=== PATIENT | female | born 1950 | race Hispanic/Latino ===

== ENCOUNTER → 2018-07-27 | Outpatient (CLI) | payer MEDICARE ==
[~2018-07-27] MED LIST: GLIPIZIDE5 MG PO; HYDROCHLOROTHIA25 MG PO; LEXAPRO10 MG PO; LORAZEPAM INJ 2 MG/ML VIAL ONE; LOSARTAN POTAS100 MG PO; METOPROLOL SUCC50 MG PO; NORCO 7.5-3251 EACH PO; REGADENOSON 0.4 MG/5 ML SYR IV ONE
== END ==
LOC: NM 08:32
PROVIDERS: ATTEND Internal Medicine Cardiovascular Disease
DX: R06.02 Shortness of breath (principal)
CPT/HCPCS: 36415; 78452; 82948; 93005; 93017; A9502; J2060; J2785

== ENCOUNTER 2019-05-31 11:39 | Inpatient (IN) | payer MEDICARE, OTHER ==
[~2019-05-31] VITALS: Ht 152.4 cm; Wt 80.8 kg
[~2019-05-31 11:39] MED LIST changes: -LORAZEPAM INJ 2 MG/ML VIAL ONE; -REGADENOSON 0.4 MG/5 ML SYR IV ONE
--- OUTSIDE RECORDS SUMMARY | 2019-05-31 11:42 | XMS REPORT ---
Author Author 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 Allergies, Adverse Reactions, Alerts This patient has no known allergies or adverse reactions. Medications This patient has no known medications. Encounters Start Date/Time End Date/Time Encounter Type Admission Type Attending Clinicians Care Facility Care Department Encounter ID 2019-04-20 18:17:00 2019-04-20 15:31:00 Inpatient E [facility] [id number] Results Test Description Test Time Test Comments Text Results Atomic Results Result Comments SCR MAMM BILATERAL PETER CAD DIGITAL 2018-06-29 12:51:15 - SCR MAMM BILATERAL PETER CAD DIGITALBILATERAL DIGITAL SCREENING MAMMOGRAM 3D/2D WITH CAD: 06/29/2018CLINICAL: Asymptomatic. Digital breast tomosynthesis was performed in addition to routine CC and MLO views. Current mammographic images were evaluated by either a [employer] M-Vu or a [employer] CAD (computer aided detection system). Comparison is made to exams dated 05/24/2016 mammogram - [facility], 09/05/2014 mammogram, and 07/04/2013 mammogram - [facility]. The tissue of both breasts is predominantly fatty. No suspicious mass, architectural distortion, malignant type calcification, or lymph node abnormality detected. Breast architecture is stable compared to prior exams.IMPRESSION: NEGATIVEThere is no mammographic evidence of malignancy. Resume annual screening mammography in one year. Ander landeros/penrad:06/29/2018 12:51:15 copy to: [facility], ph: [phone], fax: [phone] Technologist: Moon BURT, [facility] sent: BIRADS 1-2 Normal Mammogram BI-RADS: 1 Negative
[2019-05-31] MEDS ORDERED: ASPIRIN 81 MG CHEW TAB PO ONE (11:45)
--- NOTE | 2019-05-31 12:31 | Diagnostic Imaging Report ---
Chest, portable AP view History: Shortness breath Comparison: No comparisons available for review IMPRESSION: The heart is within normal limits of size. The mediastinal and hilar contours are unremarkable. No focal consolidation, sizable pleural effusion, or pneumothorax. No acute osseous abnormalities. Signed by: Abisai Webb MD on 05/31/2019 12:27 PM
[2019-05-31 13:17] LABS: CLARITY,URINE SL CLOUDY (CLEAR); COLOR,URINE YELLOW (YELLOW)
[2019-05-31 13:18] LABS: BILIRUBIN,URINE NEGATIVE (NEGATIVE); KETONES,URINE NEGATIVE (NEGATIVE); LEUKOCYTE ESTERASE ,URINE NEGATIVE (NEGATIVE); NITRITE,URINE NEGATIVE (NEGATIVE); PROTEIN,URINE DIPSTICK NEGATIVE (NEGATIVE); URINE UROBILINOGEN 0.2 mg/dL (0.2 - 1)
[2019-05-31 13:28] LABS: BACTERIA,URINE FEW /HPF; EPITHELIAL CELLS,URINE MODERATE /LPF; RBC,URINE 0-5 /HPF (0-5)
[2019-05-31 13:33] LABS: INR 1.35; PARTIAL THROMBOPLASTIN TIME 40.1 seconds (23.8-35.5); PROTHROMBIN TIME 17.6 seconds (11.9-14.5)
[2019-05-31 13:41] LABS: ALBUMIN 4.1 g/dL (3.5-5.0); ANION GAP 17.7 mmol/L (8-16); CALCIUM 10.6 mg/dL (8.4-10.2); CREATININE, SERUM 1.29 mg/dL (0.57-1.11); MAGNESIUM 1.9 MG/DL (1.3-2.1); POTASSIUM 3.7 mmol/L (3.5-5.1)
[2019-05-31 14:08] LABS: BASOPHILS # (AUTO) 0.1 (0.0-0.1); BASOPHILS % 0.6 % (0.0-1.0); EOSINOPHILS % 0.2 % (0.0-6.0); HEMOGLOBIN 14.3 g/dL (12.0-16.0); LYMPHOCYTES # (AUTO) 1.5 (1.0-3.2); LYMPHOCYTES % 16.2 % (18.0-39.1); MEAN CORPUSCULAR HEMOGLOBIN 29.4 pg (28-32); MEAN CORPUSCULAR HGB CONC 32.5 g/dL (31-35); MEAN CORPUSCULAR VOLUME 90.5 fL (81-99); MONOCYTES # (AUTO) 0.8 (0.2-0.8); MONOCYTES % 8.8 % (4.4-11.3); NEUTROPHILS # (AUTO) 6.7 (2.1-6.9); PLATELET COUNT 295 x10e3/uL (140-360); RED BLOOD COUNT 4.86 x10e6/uL (3.6-5.1); RED CELL DISTRIBUTION WIDTH 14.4 % (11.7-14.4)
[2019-05-31] MEDS ORDERED: SODIUM CHLORIDE 0.9% 1000ML 1,000 ML IV STA (14:15)
[2019-05-31] MEDS ORDERED: ONDANSETRON HCL INJ 2MG/ML 2ML 2 MG/ML VIAL IV PRN (15:15)
--- NOTE | 2019-05-31 15:31 | Diagnostic Imaging Report ---
CT of the chest, with contrast (PE protocol). History: Shortness of breath Comparison: None available. Technique: Multidetector CT scanning of the chest was performed from the level of the thoracic inlet to the upper abdomen after IV contrast injection. Thin collimation scanning through the pulmonary arteries was performed during the early phase. Coronal MIP reformations were obtained. DOSE REDUCTION: The examination was performed according to departmental dose-optimization program which includes automated exposure control, adjustment of the mA and/or kV according to patient size and/or use of iterative reconstruction technique. Discussion: The visualized portions of the thyroid within normal limits. There is no axillary, mediastinal, or hilar lymphadenopathy. The heart is within normal limits of size. A small pericardial effusion is present. There are scattered coronary artery calcifications are noted. The thoracic aorta is of normal course and caliber and demonstrates moderate atherosclerotic calcifications. The main pulmonary artery is normal in caliber. The pulmonary artery branches are well opacified with contrast. There is no evidence of pulmonary embolism. The trachea and central airways are clear. There are small bilateral pleural effusions, right greater than left. Atelectasis is present in the bilateral lower lobes and lingula. No focal consolidation. No pneumothorax. The esophagus is of normal course and caliber. Limited evaluation of the upper abdomen demonstrates no focal hepatic lesions in the visualized portions of the liver. The spleen is within normal limits. IMPRESSION: 1. No evidence of pulmonary embolism. 2. Small pericardial effusion. 3. Small bilateral pleural effusions, right greater than left. Signed by: Abisai Webb MD on 05/31/2019 3:28 PM
[2019-05-31] MEDS: SODIUM CHLORIDE 0.9% 1000ML 1,000 ML IV SCH (15:53)
[2019-05-31] MEDS ORDERED: SODIUM CHLORIDE 0.9% 50ML 50 ML ONE (17:54)
[2019-05-31] MEDS ORDERED: IOPAMIDOL 370 MG/ML 200 ML INFUS..BTL INJ ONE (17:55)
--- NOTE | 2019-05-31 18:05 | NUR ---
PT RECEIVED FROM ER. MORAIMA. FAMILY AT BEDSIDE. EDUCATED PT ABOUT FALL PRECAUTIONS. CALL LIGHT WITH IN EASY REACH. INSTRUCTED PT TO USE CALL LIGHT FOR ALL THE NEEDS. PT VERBALIZED UNDERSTANDING. BED IS LOW AND LOCKED. SIDE RAILS X2.PT DENIES NEEDS AT THIS TIME.
[2019-05-31 18:30] VITALS: BP 117/59
--- NOTE | 2019-05-31 19:00 | NUR ---
BEDSIDE SHIFT REPORT GIVEN TO THE PRESIDENT [facility]UCATIONAL [facility] RN. PT DENIED FURTHER NEEDS.
--- NOTE | 2019-05-31 19:10 | NUR ---
Bedside shift completed with morning nurse. Pt alert and oriented to name. Lying in bed, HOB 30 degrees. Denies pain at this time. Family at bedside. Call light within reach. Will continue to monitor.
[2019-05-31 20:00] VITALS: BP 117/59
[2019-05-31 20:40] VITALS: BP 117/59
--- NOTE | 2019-05-31 20:40 | NUR ---
Completed RN nursing assessment. Pt alert to name, hospital, and diagnosis: SOB. O2 @2L, o2 sat 98%. Skin dry and intact. Denies pain at this time. Continent B/B, x1 assist. Lung sounds diminished. Meds rec completed. Last BM 05/31. Urine clear, yellow, and without odor. Oriented Pt/Family to room, bed low and locked, call light within reach. Will continue to monitor.
[2019-05-31 21:00] VITALS: BP 117/59
[2019-05-31] MEDS ORDERED: FAMOTIDINE 20 MG/2 ML VIAL IV SCH (21:00)
[2019-05-31] MEDS ORDERED: ELIQUIS5 MG (21:56)
[2019-05-31] MEDS ORDERED: TRIAMTERENE-HCTZ1 EA PO ×2 (21:56)
[2019-05-31] MEDS ORDERED: AMLODIPINE BESYL5 MG PO (21:56)
[2019-05-31] MEDS ORDERED: AMIODARONE HCL200 MG (21:56)
[2019-05-31] MEDS ORDERED: ASPIRIN81 MG (21:56)
[2019-05-31] MEDS ORDERED: ZOLPIDEM TARTRAT5 MG PO (21:56)
[2019-05-31] MEDS ORDERED: FARXIGA10 MG (21:56)
[2019-05-31] MEDS ORDERED: METOPROLOL TART25 MG PO (21:56)
[2019-05-31] MEDS ORDERED: LOVASTATIN40 MG (21:56)
[2019-05-31] MEDS ORDERED: GLIMEPIRIDE2 MG PO (21:56)
[2019-06-01] VITALS (10 sets, daily range): BP systolic 126–150; BP diastolic 53–80
[2019-06-01 00:14] LABS: CREATINE KINASE MB 10.7 ng/mL (0-5.0)
[2019-06-01] MEDS: SODIUM CHLORIDE 0.9% 1000ML 1,000 ML IV SCH ×2 (02:18→07:32)
[2019-06-01 05:48] LABS: BASOPHILS # (AUTO) 0.1 (0.0-0.1); BASOPHILS % 0.9 % (0.0-1.0); EOSINOPHILS # (AUTO) 0.1 (0.0-0.4); EOSINOPHILS % 0.7 % (0.0-6.0); HEMATOCRIT 42.2 % (34.2-44.1); HEMOGLOBIN 13.5 g/dL (12.0-16.0); LYMPHOCYTES # (AUTO) 1.7 (1.0-3.2); LYMPHOCYTES % 24.3 % (18.0-39.1); MEAN CORPUSCULAR HEMOGLOBIN 29.2 pg (28-32); MEAN CORPUSCULAR VOLUME 91.1 fL (81-99); MONOCYTES # (AUTO) 0.9 (0.2-0.8); MONOCYTES % 12.6 % (4.4-11.3); NEUTROPHILS # (AUTO) 4.3 (2.1-6.9); NEUTROPHILS % 61.2 % (38.7-80.0); PLATELET COUNT 296 x10e3/uL (140-360); RED BLOOD COUNT 4.63 x10e6/uL (3.6-5.1); RED CELL DISTRIBUTION WIDTH 14.5 % (11.7-14.4)
[2019-06-01 06:08] LABS: ALBUMIN 3.5 g/dL (3.5-5.0); ALBUMIN/GLOBULIN RATIO 0.9 (0.8-2.0); ANION GAP 11.5 mmol/L (8-16); CALCIUM 9.7 mg/dL (8.4-10.2); CHOL/HDL RATIO 3.4 (3.0-3.6); CREATININE, SERUM 0.97 mg/dL (0.57-1.11); POTASSIUM 3.5 mmol/L (3.5-5.1)
--- NOTE | 2019-06-01 07:00 | NUR ---
Rounds completed with morning nurse. No acute distress noted. Family at bedside.
[2019-06-01 08:06] LABS: CREATINE KINASE MB 8.9 ng/mL (0-5.0)
[2019-06-01] MEDS ORDERED: ASPIRIN 81 MG ENTERIC COATED PO SCH (09:00)
[2019-06-01] MEDS ORDERED: FUROSEMIDE INJ 10 MG/ML 4 ML VIAL IV NR (09:30)
[2019-06-01] MEDS ORDERED: DEXTROSE 50% SYRINGE 50 ML IV PRN (09:30)
--- NOTE | 2019-06-01 09:44 | NUR ---
Spoke with Dr. Oneil and he changed attending to Dr. Lynn due to insurance is [facility]. CM notified Dr. Lynn. CM notified Ashley on MS2 that Dr. Lynn has been notified
--- NOTE | 2019-06-01 11:10 | NUR ---
H&P cc: generalized weakness and pain for several days HPI: 68yoF, PCP , developed generalized weakness and muscle pain for several days; Found to have acute rhabdomyolysis. PMH: DM2, HTN PSHx: back ALlergies; see emr Fh/SH; ; no cigs meds; see MAR ROS: no f/c/s/N/V/D/KANG/cp/sob/skin rash/back pain/confusion/focal limb weakness v/s; revd PE tired appearing anicteric ns1s2 mod bs soft nt nd no e/t skin dry flat affect a&ox3; kennedy labs/meds revd A/P: Acute rhabdomyolysis- ivf DEIRDRE- ivf DM2- hba1c/lipids Obesity- hab1c/lipids BMI 34.8 Enterococcus UTI- iv abx B/L pleural effusion- monitor prop: scd dispo: f/u labs; Beto Lynn MD, PhD.
[2019-06-01] MEDS ORDERED: ONDANSETRON HCL INJ 2MG/ML 2ML 2 MG/ML VIAL IV PRN (11:15)
[2019-06-01] MEDS: AMIODARONE HCL 200 MG TAB PO SCH (11:18)
[2019-06-01] MEDS: INSULIN LISPRO 100 UNIT/1 ML 3ML VIAL SQ SCH ×3 (11:47→21:00)
--- NOTE | 2019-06-01 12:40 | NUR ---
KAREN CALL FROM TELE MONITOR STATING PATIENTS MONITOR IS READING V TACH. WENT TO SEE PT, SHE IS SITTING IN CHAIR WITHOUT ANY DISTRESS, NO COMPLAINTS. STATES SHE HAS A LITTLE CHEST PRESSURE, NOT REALLY HURTING. CALLED FOR STAT ECG, SAME DONE AND SHOWS AFIB WITH RVR. DR. MOREL CALLED AND REPORT GIVEN TO HER, SHE IS AVAILABLE AND WILL SEE PATIENT AND ECG PATIENT HAS NO COMPLAINTS POST ECG, WILL CONTINUE TO MONITOR
[2019-06-01] MEDS: METOPROLOL TARTRATE 25 MG TAB PO SCH (16:47)
[2019-06-01] MEDS: APIXABAN 5 MG TABLET PO SCH (16:47)
[2019-06-01] MEDS: FUROSEMIDE INJ 10 MG/ML 4 ML VIAL IV SCH (16:49)
[2019-06-01] MEDS: ACETAMINOPHEN 325 MG TAB PO PRN (16:49)
--- NOTE | 2019-06-01 18:32 | Consultation ---
DATE OF CONSULTATION: 06/01/2019 Cardiology Consultation REQUESTING PHYSICIAN: Satnley Lynn MD. REASON FOR CONSULTATION: Shortness of breath. HISTORY OF PRESENT ILLNESS: This is a 68-year-old woman with history of hypertension, hyperlipidemia, diabetes mellitus, as well as paroxysmal atrial fibrillation, who was admitted with complaints of shortness of breath and weakness. The patient was recently admitted to [facility] with complaints of palpitations and chest pain. She was found to have atrial fibrillation and started on appropriate medical therapy. She states that after her discharge from the hospital, she has been significantly fatigued with worsening of her symptoms over the last month. She was seen in the office by Dr. Marroquin yesterday with complaints of weakness and shortness of breath. On ambulation, she was noted to become hypoxic to 85% and she was therefore sent to the ER for further evaluation. The patient states that she has been having chest pain and shortness of breath for the last month. Describes the pain as a pressure lasting approximately 20 minutes at a time, 10/10 in severity, occurring multiple times a day. CT in the ER did not reveal evidence of pulmonary embolism, but she was seen to have a small pericardial effusion and small bilateral pleural effusions, right greater than left. In addition, she was noted to have CK elevation to 1446 and acute kidney injury. The patient was therefore admitted for further care. Cardiology is consulted for evaluation of her cardiac condition. REVIEW OF SYSTEMS: Negative except as per HPI. PAST MEDICAL HISTORY: Hypertension, hyperlipidemia, and diabetes mellitus. PAST SURGICAL HISTORY: Spine surgery. ALLERGIES: NO KNOWN DRUG ALLERGIES. MEDICATIONS: Please see medication list. SOCIAL HISTORY: Denies tobacco, alcohol, or illicit drugs. FAMILY HISTORY: Noncontributory to current illness. PHYSICAL EXAMINATION: VITAL SIGNS: Temperature 97.5 degrees, pulse 86, respiratory rate 18, blood pressure 133/64, and oxygen saturation 100% on room air. GENERAL: Awake, alert, well-nourished, elderly woman, no acute distress. HEENT: Normocephalic, atraumatic. Pupils equal. No sclerae icterus. NECK: Supple. No thyromegaly. No cervical lymphadenopathy. No carotid bruits. LUNGS: Decreased breath sounds at the bases. No wheezes or crackles. CARDIOVASCULAR: Normal rate. Regular rhythm. No murmur. Normal S1, S2. ABDOMEN: Soft, nontender. EXTREMITIES: No edema. NEUROLOGIC: Nonfocal exam. LABORATORY DATA: Sodium 140, potassium 3.5, chloride 108, CO2 of 24, BUN 20, and creatinine 0.97. BNP 153. LABORATORY DATA: WBC 6.96, hemoglobin 13.5, hematocrit 42.2, and platelets 296. EKG, normal sinus rhythm, possible left atrial enlargement, ST and T-wave abnormalities. IMPRESSION: 1. Rhabdomyolysis. 2. Acute hypoxic respiratory failure. 3. Elevated BNP. 4. Paroxysmal atrial fibrillation. 5. Hypertension. 6. Hyperlipidemia. 7. Diabetes mellitus. RECOMMENDATIONS: Statin has been discontinued. Continue amiodarone and Eliquis for her paroxysmal atrial fibrillation. Continue IV fluids. Her renal function has improved. We will start her on IV Lasix to keep euvolemic. Continue home cardiac medications otherwise. Monitor the patient closely on telemetry while admitted. Thank you for this consult. We will continue to follow. Lucinda Moore MD ABS/MODL /[id number]
[2019-06-01] MEDS: ZOLPIDEM TARTRATE 5 MG TAB PO SCH (21:45)
[2019-06-02] VITALS (13 sets, daily range): BP systolic 101–136; BP diastolic 57–80
[2019-06-02 06:11] LABS: BASOPHILS # (AUTO) 0.1 (0.0-0.1); BASOPHILS % 0.8 % (0.0-1.0); EOSINOPHILS % 0.2 % (0.0-6.0); HEMOGLOBIN 14.8 g/dL (12.0-16.0); LYMPHOCYTES # (AUTO) 1.6 (1.0-3.2); LYMPHOCYTES % 18.1 % (18.0-39.1); MEAN CORPUSCULAR HEMOGLOBIN 29.1 pg (28-32); MEAN CORPUSCULAR HGB CONC 32.2 g/dL (31-35); MEAN CORPUSCULAR VOLUME 90.6 fL (81-99); MONOCYTES # (AUTO) 0.9 (0.2-0.8); MONOCYTES % 10.4 % (4.4-11.3); NEUTROPHILS # (AUTO) 6.2 (2.1-6.9); NEUTROPHILS % 70.2 % (38.7-80.0); PLATELET COUNT 305 x10e3/uL (140-360); RED BLOOD COUNT 5.08 x10e6/uL (3.6-5.1); RED CELL DISTRIBUTION WIDTH 14.4 % (11.7-14.4)
--- NOTE | 2019-06-02 07:01 | NUR ---
IM-progress note O/N see below ROS: no f/c/s/N/V/D/KANG/cp/sob/skin rash/back pain/confusion/focal limb weakness v/s; revd PE tired appearing anicteric ns1s2 mod bs soft nt nd no e/t skin dry flat affect a&ox3; kennedy labs/meds revd A/P: Acute rhabdomyolysis- ivf DEIRDRE- ivf DM2- hba1c/lipids Obesity- hab1c/lipids BMI 34.8 Enterococcus UTI- iv abx B/L pleural effusion- monitor prop: scd dispo: f/u labs; 06/02/19 check renal fn and CPK at 4pm. Beto Lynn MD, PhD.
--- NOTE | 2019-06-02 07:06 | NUR ---
BSSR GIVEN TO ONCOMING SHIFT GEOVANY ALVAREZ, PATIENT STABLE, VSS, AFEBRILE, IN BED, CALL LIGHT WITHIN REACH, VERBAZBARAK CONTINUE PLAN OF CARE, BED IN LOWEST POSITION, LABS PENDING THIS AM
[2019-06-02 07:12] LABS: ANION GAP 18.4 mmol/L (8-16); CREATININE, SERUM 1.2 mg/dL (0.57-1.11); POTASSIUM 3.4 mmol/L (3.5-5.1)
[2019-06-02 07:14] LABS: PHOSPHORUS 4.4 MG/DL (2.3-4.7)
[2019-06-02 07:34] LABS: THYROID STIMULATING HORMONE 2.741 uIU/mL (0.350-4.940)
[2019-06-02 07:47] LABS: FOLATE 33.6 ng/mL (7.0-15.4)
[2019-06-02] MEDS: FUROSEMIDE INJ 10 MG/ML 4 ML VIAL IV SCH ×2 (08:12→17:04)
[2019-06-02] MEDS: APIXABAN 5 MG TABLET PO SCH ×2 (08:13→17:04)
[2019-06-02] MEDS: AMLODIPINE BESYLATE 5 MG TAB PO SCH (08:13)
[2019-06-02] MEDS: AMIODARONE HCL 200 MG TAB PO SCH (08:13)
[2019-06-02] MEDS: METOPROLOL TARTRATE 25 MG TAB PO SCH ×2 (08:13→17:05)
[2019-06-02] MEDS: INSULIN LISPRO 100 UNIT/1 ML 3ML VIAL SQ SCH ×4 (08:21→23:42)
[2019-06-02 17:00] LABS: ANION GAP 17.8 mmol/L (8-16); CREATININE, SERUM 1.42 mg/dL (0.57-1.11); POTASSIUM 3.8 mmol/L (3.5-5.1)
[2019-06-02] MEDS: SODIUM CHLORIDE 0.45% 1,000 ML IV SCH (18:12)
--- NOTE | 2019-06-02 19:16 | NUR ---
BEDSIDE SHIFT REPORT RECEIVED FROM GEOVANY ALVAREZ, SKIN WARM DRY, PATIENT SITTING IN CHAIR WITH DAUGHTER AT BEDSIDE, NO DISTRESS NOTED, REMAIN ON TELEMETRY, REPORT SR TODAY, PATIENT NPO AFTER MIDNIGHT FOR STRESS TEST IN THE AM, PATIENT AND DAUGHTER MADE AWARE QUESTIONS ANSWERED R/T PENDING PROCEDURE IN THE AM, DENIES CP OR SOB AT THIS TIME, CALL LIGHT WITHIN REACH
--- NOTE | 2019-06-02 19:22 | Progress Note ---
DATE: 06/02/2019 Cardiology Progress Note SUBJECTIVE: The patient denies shortness of breath, however, she does endorse chest pain. OBJECTIVE: VITAL SIGNS: Temperature 97.8 degrees, pulse 68, respiratory rate 20, blood pressure 101/71, and oxygen saturation 100% on room air. GENERAL: Awake, alert, elderly woman, in no acute distress. LUNGS: Decreased breath sounds at the bases. No wheezes or crackles. CARDIOVASCULAR: Normal rate. Regular rhythm. No murmur. Normal S1 and S2. ABDOMEN: Soft and nontender. EXTREMITIES: No edema. CARDIAC MEDICATIONS: Metoprolol tartrate 25 mg p.o. b.i.d., apixaban 5 mg p.o. b.i.d., amlodipine 5 mg p.o. daily, and amiodarone 200 mg p.o. daily. LABORATORY DATA: WBC 8.8, hemoglobin 14.8, hematocrit 46, and platelets 305. Sodium 138, potassium 3.8, chloride 100, CO2 24, BUN 36, and creatinine 1.42. TELEMETRY: Personally reviewed and interpreted, revealing normal sinus rhythm. IMPRESSION: 1. Rhabdomyolysis. 2. Acute hypoxic respiratory failure. 3. Elevated BNP. 4. Paroxysmal atrial fibrillation. 5. Hypertension. 6. Hyperlipidemia. 7. Diabetes mellitus. RECOMMENDATIONS: Statin has been discontinued. Continue amiodarone and Eliquis for her paroxysmal atrial fibrillation. Continue IV fluids. Creatinine has worsened. Stop Lasix for now. Monitor volume status closely. Given her continued chest pain, would recommend we proceed with nuclear stress test tomorrow. Continue current cardiac medications. Monitor the patient closely on telemetry. Thank you for this consult. We will continue to follow. Lucinda Moore MD ABS/MODL /[id number]
[2019-06-02] MEDS: ZOLPIDEM TARTRATE 5 MG TAB PO SCH (22:28)
[2019-06-03] VITALS (11 sets, daily range): BP systolic 109–130; BP diastolic 56–60
[2019-06-03 06:05] LABS: ALBUMIN 3.6 g/dL (3.5-5.0); ANION GAP 14.1 mmol/L (8-16); CALCIUM 9.2 mg/dL (8.4-10.2); CREATININE, SERUM 1.08 mg/dL (0.57-1.11); POTASSIUM 3.1 mmol/L (3.5-5.1)
[2019-06-03] MEDS: INSULIN LISPRO 100 UNIT/1 ML 3ML VIAL SQ SCH ×4 (07:30→21:00)
--- NOTE | 2019-06-03 08:02 | NUR ---
Patient states "I don't want to sign stress test consent until I speak to my pay clerk. Paged . infection preventionist. states "I will let know so he can talk to her."
[2019-06-03] MEDS ORDERED: REGADENOSON 0.4 MG/5 ML SYR IV ONE (08:43)
[2019-06-03] MEDS: METOPROLOL TARTRATE 25 MG TAB PO SCH ×2 (09:00→16:27)
[2019-06-03] MEDS: APIXABAN 5 MG TABLET PO SCH ×2 (09:00→16:27)
[2019-06-03] MEDS ORDERED: ONDANSETRON HCL 4 MG ORAL DISINTEGRATING TAB PO PRN (10:45)
--- NOTE | 2019-06-03 12:00 | NUR ---
IM-progress note O/N see below ROS: no f/c/s/N/V/D/KANG/cp/sob/skin rash/back pain/confusion/focal limb weakness v/s; revd PE tired appearing anicteric ns1s2 mod bs soft nt nd no e/t skin dry flat affect a&ox3; kennedy labs/meds revd A/P: Acute rhabdomyolysis- ivf DEIRDRE- ivf DM2- hba1c/lipids Obesity- hab1c/lipids BMI 34.8 Enterococcus UTI- iv abx B/L pleural effusion- monitor prop: scd dispo: f/u labs; 06/02/19 check renal fn and CPK at 4pm. 06/03 E.faecalis UTI- sen to Pen; HypoK- replace and recheck; DEIRDRE resolving after lasix stopped; cont IV fluid; f/u stress test; monitor fluid balance; Redu ce fluid to KVO. Beto Lynn MD, PhD.
--- NOTE | 2019-06-03 12:45 | NUR ---
at [facility] speaking to patient about stress test. stress test cancelled.
[2019-06-03] MEDS: AMIODARONE HCL 200 MG TAB PO SCH (13:10)
[2019-06-03] MEDS: AMLODIPINE BESYLATE 5 MG TAB PO SCH (13:10)
[2019-06-03] MEDS: SODIUM CHLORIDE 0.45% 1,000 ML IV SCH (13:25)
--- NOTE | 2019-06-03 14:00 | NUR ---
D/C Summary Principal Dx: Acute rhabdomyolysis- ivf DEIRDRE- ivf Enterococcus UTI- iv abx B/L pleural effusion- monitor Secondary Dx: DM2- hba1c/lipids Obesity- hab1c/lipids BMI 34.8 Enterococcus UTI- iv abx B/L pleural effusion- monitor prop: scd dispo: f/u labs; 06/02/19 check renal fn and CPK at 4pm. 06/03 E.faecalis UTI- sen to Pen; HypoK- replace and recheck; DEIRDRE resolving after lasix stopped; cont IV fluid; f/u stress test; monitor fluid balance; Reduce fluid to KVO. 06/04 check labs; refuses stress test; improving well; renal fn much better; CPK also improving; d/c home. d/c home f/u pcp 1 week and cardiology 1 week stable d/c>35mins Beto Lynn MD, PhD.
[2019-06-03] MEDS: ACETAMINOPHEN 325 MG TAB PO PRN (14:44)
[2019-06-03] MEDS ORDERED: POTASSIUM CHLORIDE 20 MEQ TAB CR PO NR (17:20)
[2019-06-03] MEDS: CEFTRIAXONE SOD 1 GM/NS 50 ML 50 ML IV SCH (17:48)
--- NOTE | 2019-06-03 18:57 | Progress Note ---
DATE: Cardiology Progress Note SUBJECTIVE: Still reports mild shortness of breath and weakness. No chest pain. OBJECTIVE: VITAL SIGNS: Temperature is 96.6, heart rate is 81, respirations are 22, blood pressure is 126/60, and oxygen saturation 97% on 2 L nasal cannula. GENERAL: Well-appearing, in no apparent distress. CARDIOVASCULAR: Regular rate and rhythm. LUNGS: Clear to auscultation. ABDOMEN: Soft, nontender, and nondistended. EXTREMITIES: No clubbing, cyanosis, or edema. LABORATORY DATA: Reviewed. CARDIOVASCULAR MEDICATIONS: Reviewed. Creatine kinase is down to 568. IMPRESSION: 1. Rhabdomyolysis. 2. Acute hypoxic respiratory failure. 3. Elevated BNP. 4. Paroxysmal atrial fibrillation. 5. Hypertension. 6. Hyperlipidemia. 7. Diabetes mellitus. RECOMMENDATIONS: Her statin was discontinued. Creatine kinase levels are improving with intravenous fluids. Lasix has been discontinued. Continue to monitor her daily laboratory values. Stress test was recommended, however, the patient currently is declining at this point in time. We will continue current cardiovascular medications otherwise. Dionisio Marroquin DO BM/MODL /[id number]
--- NOTE | 2019-06-03 19:28 | NUR ---
Report given to oncoming nurse of patient's status. Sitting on recliner. AAOX4 to time, person, place, situation. Respiration even and unlabored. Call light at bedside, daughter at bedside.
--- NOTE | 2019-06-03 19:35 | NUR ---
Patient received sitting up in bed. AAO x 4. Patient had no complaints of pain. Respirations even and non-labored. Fall precautions implemented. Patient instructed to call for assistance when needed. Call light within reach.
[2019-06-03] MEDS: ZOLPIDEM TARTRATE 5 MG TAB PO SCH (20:47)
[2019-06-04] VITALS (7 sets, daily range): BP systolic 120–143; BP diastolic 58–71
--- NOTE | 2019-06-04 07:00 | NUR ---
Walking rounds done. Patient resting comfortably. BSSR given to oncoming nurse.
[2019-06-04 07:52] LABS: BASOPHILS # (AUTO) 0.1 (0.0-0.1); BASOPHILS % 0.7 % (0.0-1.0); EOSINOPHILS # (AUTO) 0.1 (0.0-0.4); EOSINOPHILS % 1.5 % (0.0-6.0); HEMATOCRIT 42.2 % (34.2-44.1); HEMOGLOBIN 13.7 g/dL (12.0-16.0); LYMPHOCYTES # (AUTO) 1.8 (1.0-3.2); LYMPHOCYTES % 26.2 % (18.0-39.1); MEAN CORPUSCULAR HEMOGLOBIN 29.4 pg (28-32); MEAN CORPUSCULAR HGB CONC 32.5 g/dL (31-35); MEAN CORPUSCULAR VOLUME 90.6 fL (81-99); MONOCYTES # (AUTO) 0.7 (0.2-0.8); MONOCYTES % 9.9 % (4.4-11.3); NEUTROPHILS # (AUTO) 4.2 (2.1-6.9); NEUTROPHILS % 61.6 % (38.7-80.0); PLATELET COUNT 276 x10e3/uL (140-360); RED BLOOD COUNT 4.66 x10e6/uL (3.6-5.1); RED CELL DISTRIBUTION WIDTH 14.5 % (11.7-14.4)
[2019-06-04] MEDS: APIXABAN 5 MG TABLET PO SCH ×2 (08:15→17:10)
[2019-06-04] MEDS: AMIODARONE HCL 200 MG TAB PO SCH (08:15)
[2019-06-04] MEDS: INSULIN LISPRO 100 UNIT/1 ML 3ML VIAL SQ SCH ×3 (08:15→17:11)
[2019-06-04] MEDS: METOPROLOL TARTRATE 25 MG TAB PO SCH ×2 (08:15→17:10)
[2019-06-04] MEDS: AMLODIPINE BESYLATE 5 MG TAB PO SCH (08:15)
[2019-06-04 08:27] LABS: ANION GAP 13.2 mmol/L (8-16); BLOOD UREA NITROGEN 18 mg/dL (7-26); BUN/CREATININE RATIO 22 (6-25); CALCIUM 9.5 mg/dL (8.4-10.2); CARBON DIOXIDE 28 mmol/L (22-29); CHLORIDE 103 mmol/L (98-107); CREATININE, SERUM 0.83 mg/dL (0.57-1.11); EST GLOMERULAR FILTRATION RATE > 60 ML/MIN (60-); GLUCOSE 135 mg/dL (74-118); POTASSIUM 4.2 mmol/L (3.5-5.1); SODIUM 140 mmol/L (136-145)
[2019-06-04] MEDS: SODIUM CHLORIDE 0.45% 1,000 ML IV SCH (16:21)
[2019-06-04] MEDS: CEFTRIAXONE SOD 1 GM/NS 50 ML 50 ML IV SCH (17:11)
--- NOTE | 2019-06-04 19:26 | NUR ---
Patient received sitting up in bed. Son at bedside. AAO x 3. No acute distress noted. Fall precautions implemented. Patient instructed to call for assistance when needed. Call light within reach.
[2019-06-04] MEDS ORDERED: KEFLEX500 MG PO (19:37)
--- NOTE | 2019-06-04 20:55 | NUR ---
Patient given discharge instructions . Patient verbalized understanding. Telemetry removed. IV removed from left arm with tip intact . Patient in stable condition. Vital signs WNL. Patient transported to private [facility] via wheelchair.
== END 2019-06-04 20:45 | disposition home or self-care (01) | DRG 557 ==
LOC: ER 11:39 → ERHOLD 15:15 → MED/SURG2 18:00
PROVIDERS: ADMIT Internal Medicine; ATTEND Internal Medicine
DX: M62.82 Rhabdomyolysis (principal); I50.31 Acute diastolic (congestive) heart failure; J96.01 Acute respiratory failure with hypoxia; N17.9 Acute kidney failure, unspecified; N39.0 Urinary tract infection, site not specified; J90 Pleural effusion, not elsewhere classified; I11.0 Hypertensive heart disease with heart failure; I48.0 Paroxysmal atrial fibrillation; E11.9 Type 2 diabetes mellitus without complications; B95.2 Enterococcus as the cause of diseases classified elsewhere; E66.9 Obesity, unspecified; Z68.34 Body mass index [BMI] 34.0-34.9, adult
CPT/HCPCS: 36415; 71045; 71260; 80048; 80053; 80061; 81001; 82550; 82552; 82553; 82607; 82746; 82948; 83036; 83735; 83880; 84100; 84443; 84484; 85025; 85379; 85610; 85730; 87040; 87086; 87186; 93005; 93306; 96361; 96372; 97139; 99284; J0696; J1940; J7030; Q9967

== ENCOUNTER 2019-06-20 14:37 | Emergency (ER) | payer MEDICARE, OTHER ==
[~2019-06-20] VITALS: Ht 152.4 cm; Wt 80.7 kg
[~2019-06-20 14:37] MED LIST changes: +AMIODARONE HCL200 MG; +AMLODIPINE BESYL5 MG PO; +ASPIRIN81 MG; +ELIQUIS5 MG; +FARXIGA10 MG; +GLIMEPIRIDE2 MG PO; +KEFLEX500 MG PO; +LOVASTATIN40 MG; +METOPROLOL TART25 MG PO; +TRIAMTERENE-HCTZ1 EA PO; +ZOLPIDEM TARTRAT5 MG PO
[2019-06-20 16:26] LABS: CLARITY,URINE SL CLOUDY (CLEAR); COLOR,URINE YELLOW (YELLOW); LEUKOCYTE ESTERASE ,URINE TRACE (NEGATIVE); NITRITE,URINE NEGATIVE (NEGATIVE); PROTEIN,URINE DIPSTICK NEGATIVE (NEGATIVE)
[2019-06-20 16:27] LABS: BILIRUBIN,URINE NEGATIVE (NEGATIVE); KETONES,URINE NEGATIVE (NEGATIVE); URINE UROBILINOGEN 0.2 mg/dL (0.2 - 1)
[2019-06-20 16:37] LABS: BACTERIA,URINE FEW /HPF; EPITHELIAL CELLS,URINE MANY /LPF; RBC,URINE 0-5 /HPF (0-5); YEAST,URINE FEW
== END 2019-06-20 16:48 | disposition home or self-care (01) ==
LOC: ER 14:37
DX: R30.0 Dysuria (principal); R10.2 Pelvic and perineal pain; N30.90 Cystitis, unspecified without hematuria; I10 Essential (primary) hypertension; E11.9 Type 2 diabetes mellitus without complications
CPT/HCPCS: 36415; 81001; 82948; 87086; 99282

== ENCOUNTER → 2020-01-02 | Day surgery (SDC) | payer MEDICARE, OTHER ==
[2019-12-30 16:12] LABS: BASOPHILS # (AUTO) 0.1 (0.0-0.1); BASOPHILS % 0.7 % (0.0-1.0); EOSINOPHILS % 0.5 % (0.0-6.0); HEMATOCRIT 42.1 % (34.2-44.1); HEMOGLOBIN 13.3 g/dL (12.0-16.0); LYMPHOCYTES % 26.4 % (18.0-39.1); MEAN CORPUSCULAR HEMOGLOBIN 30.6 pg (28-32); MEAN CORPUSCULAR HGB CONC 31.6 g/dL (31-35); MONOCYTES # (AUTO) 0.8 (0.2-0.8); MONOCYTES % 10.3 % (4.4-11.3); NEUTROPHILS # (AUTO) 4.7 (2.1-6.9); NEUTROPHILS % 61.7 % (38.7-80.0); PLATELET COUNT 129 x10e3/uL (140-360); RED BLOOD COUNT 4.34 x10e6/uL (3.6-5.1); RED CELL DISTRIBUTION WIDTH 15.1 % (11.7-14.4)
[~2020-01-02] MED LIST changes: -AMIODARONE HCL200 MG; +AMIODARONE HCL200 MG PO; +BALANCED SALT SOLN (OPTH) 15 ML BTL IO ONE; +BUPIVACAINE HC 0.75% PF 10ML VIAL INJ ONE; +EPINEPHRINE HCL 1:1000 1ML 1 MG/ML AMP ONE; +FENTANYL CITRATE/PF 100MCG/2 ML INJ ONE; +LEVOTHYROXINE50 MCG PO; +LIDOCAINE 2% /EPINEPHRINE 20 ML SDV INJ ONE; +LIDOCAINE HCL-PF 4% 40 MG/1 ML 5ML AMP ONE; +MIDAZOLAM HCL 2 MG/2 ML VIAL ONE; +PILOCARPINE HCL(OPTH) 15 ML LIQD ONE; +PIOGLITAZONE30 MG PO; +POVIDONE IODINE 5% (OPTH) 30 ML BTL ONE; +TOBRAMYCIN/DEXAMETHASONE(OPTH) 3.5 GM TUBE ONE
[2020-01-02 09:17] LABS: CALCIUM 8.9 mg/dL (8.4-10.2); CREATININE, SERUM 0.98 mg/dL (0.57-1.11)
[2020-01-02 10:50] VITALS: BP 136/62
== END | disposition home or self-care (01) ==
LOC: OR 06:41
PROVIDERS: ATTEND Ophthalmology
DX: H11.041 Peripheral pterygium, stationary, right eye (principal); E11.9 Type 2 diabetes mellitus without complications; I10 Essential (primary) hypertension; E03.9 Hypothyroidism, unspecified; Z88.8 Allergy status to other drugs, medicaments and biological substances; Z01.810 Encounter for preprocedural cardiovascular examination; Z01.812 Encounter for preprocedural laboratory examination; Z11.59 Encounter for screening for other viral diseases; Z79.02 Long term (current) use of antithrombotics/antiplatelets; Z79.84 Long term (current) use of oral hypoglycemic drugs
CPT/HCPCS: 36415 ×2; 65426; 80048; 82948; 85025; 88304; 93005; J2001; J2250; J3010; U0002; J0171

== ENCOUNTER → 2020-03-13 | Outpatient (CLI) | payer OTHER ==
[~2020-03-13] MED LIST changes: -BALANCED SALT SOLN (OPTH) 15 ML BTL IO ONE; -BUPIVACAINE HC 0.75% PF 10ML VIAL INJ ONE; -EPINEPHRINE HCL 1:1000 1ML 1 MG/ML AMP ONE; -FENTANYL CITRATE/PF 100MCG/2 ML INJ ONE; -LIDOCAINE 2% /EPINEPHRINE 20 ML SDV INJ ONE; -LIDOCAINE HCL-PF 4% 40 MG/1 ML 5ML AMP ONE; -MIDAZOLAM HCL 2 MG/2 ML VIAL ONE; -PILOCARPINE HCL(OPTH) 15 ML LIQD ONE; -POVIDONE IODINE 5% (OPTH) 30 ML BTL ONE; +REGADENOSON 0.4 MG/5 ML SYR IV ONE; -TOBRAMYCIN/DEXAMETHASONE(OPTH) 3.5 GM TUBE ONE
--- NOTE | 2020-03-17 16:07 | Myoview Stress Test ---
DATE OF STUDY: 03/13/2020 08:54:00 Stress Test - Treadmill ONLY DICTATION NUMBER: [id number]. PROCEDURE JOSELITO: Rest/stress single isotope SPECT imaging with pharmacologic stress and gated SPECT imaging. INDICATION: Chest pain. PROCEDURE IN DETAIL: Pharmacologic stress testing was performed with regadenoson per protocol. The heart rate was 70 beats per minute at rest and increased to 81 beats per minute during the regadenoson infusion. The resting blood pressure is 105/43 mmHg and increased to 120/46 mmHg, which is a normal response. The resting electrocardiogram demonstrated normal sinus rhythm. There were no ST-segment changes suggestive of myocardial ischemia. Myocardial perfusion imaging was performed at rest following the injection of 11 mCi of tetrofosmin. At peak pharmacologic effect, the patient was injected with 32.9 mCi of tetrofosmin. Gated post-stress tomographic imaging was performed. FINDINGS: The overall quality of the study is fair. The left ventricular cavity is noted to be normal size on the rest and stress studies. SPECT images demonstrate homogeneous tracer distribution throughout the myocardium. Gated SPECT imaging reveals normal myocardial thickening and wall motion. The left ventricular ejection fraction was calculated to be greater than 70%. CONCLUSION: Myocardial perfusion imaging is normal. Overall, left ventricular systolic function was normal without regional wall motion abnormalities. Lucinda Moore MD ABS/MODL /[id number]
== END ==
LOC: NM 08:39
PROVIDERS: ATTEND Internal Medicine Cardiovascular Disease
DX: R07.9 Chest pain, unspecified (principal)
CPT/HCPCS: 78452; 93017; A9502; J2785

== ENCOUNTER → 2020-05-01 | Emergency (ER) | payer MEDICARE, OTHER ==
[~2020-05-01] VITALS: Ht 152.4 cm; Wt 80.7 kg
[~2020-05-01] MED LIST changes: -REGADENOSON 0.4 MG/5 ML SYR IV ONE
[2020-05-01 16:49] LABS: BASOPHILS # (AUTO) 0.1 (0.0-0.1); BASOPHILS % 0.6 % (0.0-1.0); EOSINOPHILS % 0.2 % (0.0-6.0); HEMATOCRIT 35.7 % (34.2-44.1); HEMOGLOBIN 11.8 g/dL (12.0-16.0); LYMPHOCYTES # (AUTO) 1.9 (1.0-3.2); LYMPHOCYTES % 23.1 % (18.0-39.1); MEAN CORPUSCULAR HEMOGLOBIN 29.6 pg (28-32); MEAN CORPUSCULAR HGB CONC 33.1 g/dL (31-35); MEAN CORPUSCULAR VOLUME 89.7 fL (81-99); MONOCYTES # (AUTO) 0.9 (0.2-0.8); MONOCYTES % 10.8 % (4.4-11.3); NEUTROPHILS # (AUTO) 5.3 (2.1-6.9); NEUTROPHILS % 64.9 % (38.7-80.0); PLATELET COUNT 200 x10e3/uL (140-360); RED BLOOD COUNT 3.98 x10e6/uL (3.6-5.1); RED CELL DISTRIBUTION WIDTH 14.6 % (11.7-14.4)
[2020-05-01 17:06] LABS: ALBUMIN 4.1 g/dL (3.5-5.0); ALBUMIN/GLOBULIN RATIO 1.2 (0.8-2.0); ANION GAP 19.2 mmol/L (8-16); CALCIUM 9.6 mg/dL (8.4-10.2); CREATININE, SERUM 1.06 mg/dL (0.57-1.11); POTASSIUM 4.2 mmol/L (3.5-5.1)
[2020-05-01 17:27] LABS: CLARITY,URINE CLEAR (CLEAR); COLOR,URINE YELLOW (YELLOW); LEUKOCYTE ESTERASE ,URINE NEGATIVE (NEGATIVE); NITRITE,URINE NEGATIVE (NEGATIVE)
[2020-05-01 17:28] LABS: KETONES,URINE NEGATIVE (NEGATIVE); PROTEIN,URINE DIPSTICK NEGATIVE (NEGATIVE); URINE UROBILINOGEN 0.2 mg/dL (0.2 - 1)
[2020-05-01 17:39] LABS: BACTERIA,URINE MODERATE /HPF; EPITHELIAL CELLS,URINE MANY /LPF
[2020-05-01 19:51] VITALS: BP 118/79
== END | disposition home or self-care (01) ==
LOC: ER 17:30
DX: R10.9 Unspecified abdominal pain (principal); I10 Essential (primary) hypertension; E11.9 Type 2 diabetes mellitus without complications; I48.91 Unspecified atrial fibrillation; Z88.8 Allergy status to other drugs, medicaments and biological substances; Z79.02 Long term (current) use of antithrombotics/antiplatelets; Z79.84 Long term (current) use of oral hypoglycemic drugs
CPT/HCPCS: 36415; 74176; 80053; 81001; 82550; 82553; 83880; 84484; 85025; 99284

== ENCOUNTER 2020-06-07 11:59 | Observation (INO) | payer MEDICARE, OTHER ==
[~2020-06-07] VITALS: Ht 152.4 cm; Wt 91.6 kg
[2020-06-07 12:34] LABS: BASOPHILS # (AUTO) 0.1 (0.0-0.1); BASOPHILS % 1.2 % (0.0-1.0); EOSINOPHILS % 0.5 % (0.0-6.0); HEMATOCRIT 35.8 % (34.2-44.1); HEMOGLOBIN 11.5 g/dL (12.0-16.0); LYMPHOCYTES # (AUTO) 1.4 (1.0-3.2); LYMPHOCYTES % 22.5 % (18.0-39.1); MEAN CORPUSCULAR HEMOGLOBIN 30.6 pg (28-32); MEAN CORPUSCULAR HGB CONC 32.1 g/dL (31-35); MEAN CORPUSCULAR VOLUME 95.2 fL (81-99); MONOCYTES # (AUTO) 0.7 (0.2-0.8); MONOCYTES % 11.3 % (4.4-11.3); NEUTROPHILS # (AUTO) 3.9 (2.1-6.9); NEUTROPHILS % 64.2 % (38.7-80.0); PLATELET COUNT 161 x10e3/uL (140-360); RED BLOOD COUNT 3.76 x10e6/uL (3.6-5.1); RED CELL DISTRIBUTION WIDTH 16.6 % (11.7-14.4)
[2020-06-07 12:55] LABS: INR 1.46; PROTHROMBIN TIME 18.8 seconds (11.9-14.5)
[2020-06-07 12:57] LABS: PARTIAL THROMBOPLASTIN TIME 33.2 seconds (23.8-35.5)
[2020-06-07] MEDS ORDERED: NITROGLYCERIN 0.4 MG SUBL SL PRN (13:30)
[2020-06-07] MEDS ORDERED: MORPHINE SULFATE INJ 2 MG/ML SYR IV PRN (13:30)
[2020-06-07] MEDS ORDERED: ONDANSETRON HCL INJ 2MG/ML 2ML 2 MG/ML VIAL IV PRN (13:30)
[2020-06-07 13:40] LABS: CLARITY,URINE CLEAR (CLEAR); COLOR,URINE YELLOW (YELLOW); LEUKOCYTE ESTERASE ,URINE NEGATIVE (NEGATIVE); NITRITE,URINE NEGATIVE (NEGATIVE); PROTEIN,URINE DIPSTICK NEGATIVE (NEGATIVE)
[2020-06-07 13:41] LABS: KETONES,URINE NEGATIVE (NEGATIVE); URINE UROBILINOGEN 0.2 mg/dL (0.2 - 1)
[2020-06-07 13:54] LABS: BACTERIA,URINE FEW /HPF; EPITHELIAL CELLS,URINE RARE /LPF; WBC,URINE (MAN) 0-5 /HPF (0-5)
[2020-06-07 15:03] LABS: ALANINE AMINOTRANSFERASE 22 IU/L (0-55); ALBUMIN 4.3 g/dL (3.5-5.0); ALBUMIN/GLOBULIN RATIO 1.2 (0.8-2.0); ALKALINE PHOSPHATASE 85 IU/L (40-150); ANION GAP 17.4 mmol/L (8-16); BLOOD UREA NITROGEN 22 mg/dL (7-26); BUN/CREATININE RATIO 19 (6-25); CALCIUM 9.9 mg/dL (8.4-10.2); CARBON DIOXIDE 26 mmol/L (22-29); CHLORIDE 104 mmol/L (98-107); CREATINE KINASE 75 IU/L (29-168); CREATININE, SERUM 1.13 mg/dL (0.57-1.11); EST GLOMERULAR FILTRATION RATE 48 ML/MIN (60-); GLUCOSE 163 mg/dL (74-118); MAGNESIUM 2.2 MG/DL (1.3-2.1); POTASSIUM 4.4 mmol/L (3.5-5.1); SODIUM 143 mmol/L (136-145)
[2020-06-07 16:53] VITALS: BP 176/84
[2020-06-07 17:32] VITALS: BP 176/84
[2020-06-07 20:44] VITALS: BP 167/73
[2020-06-08 00:26] VITALS: BP 166/88
[2020-06-08 05:00] VITALS: BP 170/83
[2020-06-08 05:09] LABS: BASOPHILS % 0.7 % (0.0-1.0); EOSINOPHILS # (AUTO) 0.1 (0.0-0.4); EOSINOPHILS % 1.3 % (0.0-6.0); HEMATOCRIT 38.2 % (34.2-44.1); HEMOGLOBIN 12.1 g/dL (12.0-16.0); LYMPHOCYTES # (AUTO) 1.7 (1.0-3.2); MEAN CORPUSCULAR HEMOGLOBIN 30.7 pg (28-32); MEAN CORPUSCULAR HGB CONC 31.7 g/dL (31-35); MONOCYTES # (AUTO) 0.8 (0.2-0.8); MONOCYTES % 14.9 % (4.4-11.3); NEUTROPHILS # (AUTO) 2.9 (2.1-6.9); NEUTROPHILS % 51.7 % (38.7-80.0); PLATELET COUNT 179 x10e3/uL (140-360); RED BLOOD COUNT 3.94 x10e6/uL (3.6-5.1); RED CELL DISTRIBUTION WIDTH 16.4 % (11.7-14.4)
[2020-06-08 05:28] LABS: ALBUMIN 3.8 g/dL (3.5-5.0); ALBUMIN/GLOBULIN RATIO 1.2 (0.8-2.0); ANION GAP 15.7 mmol/L (8-16); CALCIUM 9.2 mg/dL (8.4-10.2); CHOL/HDL RATIO 4.1 (3.0-3.6); CREATININE, SERUM 1.07 mg/dL (0.57-1.11); POTASSIUM 3.7 mmol/L (3.5-5.1)
[2020-06-08 05:54] LABS: CREATINE KINASE MB 1.2 ng/mL (0-5.0)
[2020-06-08] MEDS ORDERED: DEXTROSE 50% SYRINGE 50 ML IV PRN (06:15)
[2020-06-08] MEDS ORDERED: DOCUSATE SODIUM 100 MG CAP PO PRN (06:15)
[2020-06-08] MEDS ORDERED: ACETAMINOPHEN 325 MG TAB PO PRN (06:15)
[2020-06-08] MEDS ORDERED: LEVOTHYROXINE SODIUM 50 MCG TAB PO SCH (06:30)
[2020-06-08] MEDS: INSULIN REGULAR, HUMAN 100 UNIT/1 ML 3ML VIAL SQ SCH ×3 (07:30→16:30)
[2020-06-08 07:35] LABS: CHOL/HDL RATIO 4.1 (3.0-3.6)
[2020-06-08 08:00] VITALS: BP 156/69
[2020-06-08 08:52] VITALS: BP 170/83
[2020-06-08] MEDS: APIXABAN 5 MG TABLET PO SCH ×2 (09:00→17:00)
[2020-06-08] MEDS: METOPROLOL TARTRATE 25 MG TAB PO SCH ×2 (09:00→17:00)
[2020-06-08] MEDS: AMIODARONE HCL 200 MG TAB PO SCH ×2 (09:00→17:00)
[2020-06-08] MEDS ORDERED: LOSARTAN POTASSIUM 100 MG TAB PO SCH (11:00)
[2020-06-08 12:00] VITALS: BP 141/79
[2020-06-08 14:41] LABS: CREATINE KINASE 67 IU/L (29-168)
[2020-06-08 16:00] VITALS: BP 126/61
[2020-06-08] MEDS ORDERED: LOSARTAN POTAS100 MG PO (19:12)
[2020-06-08] MEDS ORDERED: ZOLPIDEM TARTRATE 5 MG TAB PO PRN (21:00)
== END 2020-06-08 20:00 | disposition home or self-care (01) ==
LOC: ER 12:22 → ERHOLD 13:31 → MED/SURG2 15:58
PROVIDERS: ADMIT Internal Medicine; ATTEND Internal Medicine
DX: R07.89 Other chest pain (principal); I10 Essential (primary) hypertension; E11.9 Type 2 diabetes mellitus without complications; I48.20 Chronic atrial fibrillation, unspecified; E78.5 Hyperlipidemia, unspecified; Z88.8 Allergy status to other drugs, medicaments and biological substances; E66.01 Morbid (severe) obesity due to excess calories; Z68.39 Body mass index [BMI] 39.0-39.9, adult; N17.9 Acute kidney failure, unspecified; E03.9 Hypothyroidism, unspecified; F41.9 Anxiety disorder, unspecified; J90 Pleural effusion, not elsewhere classified; Z20.822 Contact with and (suspected) exposure to COVID-19; Z79.84 Long term (current) use of oral hypoglycemic drugs
CPT/HCPCS: 36415 ×2; 71045; 80053 ×2; 80061; 81001; 82550 ×2; 82553 ×2; 82948 ×2; 83036; 83735; 83880; 84484 ×2; 85025 ×2; 85610; 85730; 87086; 93005; 93306; 99284; G0378 ×2; J1817; U0002; J2270; J2405

== ENCOUNTER 2021-08-25 14:13 | Emergency (ER) | payer MEDICARE, OTHER ==
[~2021-08-25] VITALS: Ht 157.5 cm; Wt 91.6 kg
== END 2021-08-25 21:00 | disposition home or self-care (01) ==
LOC: ER 14:36
DX: S02.2XXA Fracture of nasal bones, initial encounter for closed fracture (principal); R51.9 Headache, unspecified; M25.561 Pain in right knee; W18.39XA Other fall on same level, initial encounter; Y93.01 Activity, walking, marching and hiking; Y92.89 Other specified places as the place of occurrence of the external cause; E11.9 Type 2 diabetes mellitus without complications; I10 Essential (primary) hypertension; E78.5 Hyperlipidemia, unspecified; F41.9 Anxiety disorder, unspecified; I48.91 Unspecified atrial fibrillation
CPT/HCPCS: 70450; 70486; 72125; 72131; 99283

== ENCOUNTER 2023-03-18 12:10 | Inpatient (IN) | payer MEDICARE, OTHER ==
[~2023-03-18] VITALS: Ht 157.5 cm; Wt 83.5 kg
[2023-03-18] MEDS ORDERED: ONDANSETRON HCL INJ 2MG/ML 2ML 2 MG/ML VIAL IV STA (12:32)
[2023-03-18] MEDS ORDERED: SODIUM CHLORIDE 0.9% 1000ML 1,000 ML IV ONE (12:45)
[2023-03-18] MEDS ORDERED: ONDANSETRON HCL INJ 2MG/ML 2ML 2 MG/ML VIAL ONE (13:21)
[2023-03-18 13:31] LABS: BASOPHILS # (AUTO) 0.1 (0.0-0.1); BASOPHILS % 0.8 % (0.0-1.0); EOSINOPHILS % 0.3 % (0.0-6.0); HEMATOCRIT 40.7 % (34.2-44.1); HEMOGLOBIN 14.4 g/dL (12.0-16.0); LYMPHOCYTES # (AUTO) 2.1 (1.0-3.2); LYMPHOCYTES % 26.2 % (18.0-39.1); MEAN CORPUSCULAR HEMOGLOBIN 30.8 pg (28-32); MEAN CORPUSCULAR HGB CONC 35.4 g/dL (31-35); MEAN CORPUSCULAR VOLUME 87.2 fL (81-99); MONOCYTES # (AUTO) 0.9 (0.2-0.8); NEUTROPHILS # (AUTO) 4.8 (2.1-6.9); NEUTROPHILS % 61.4 % (38.7-80.0); PLATELET COUNT 198 x10e3/uL (140-360); RED BLOOD COUNT 4.67 x10e6/uL (3.6-5.1); RED CELL DISTRIBUTION WIDTH 13.7 % (11.7-14.4); WHITE BLOOD COUNT 7.82 x10e3/uL (4.8-10.8)
[2023-03-18 15:37] LABS: CLARITY,URINE SL CLOUDY (CLEAR); COLOR,URINE YELLOW (YELLOW); GLUCOSE, URINE NEGATIVE (NEGATIVE); KETONES,URINE NEGATIVE (NEGATIVE); LEUKOCYTE ESTERASE ,URINE SMALL (NEGATIVE); NITRITE,URINE NEGATIVE (NEGATIVE); PH,URINE 7 (5 - 7); PROTEIN,URINE DIPSTICK NEGATIVE (NEGATIVE)
[2023-03-18 15:38] LABS: BILIRUBIN,URINE NEGATIVE (NEGATIVE); URINE UROBILINOGEN 0.2 mg/dL (0.2 - 1)
[2023-03-18 15:49] LABS: ALBUMIN 3.7 g/dL (3.5-5.0); ANION GAP 16.6 mmol/L (8-16); BACTERIA,URINE MANY /HPF; BILIRUBIN,TOTAL 1.7 mg/dL (0.2-1.2); CREATININE, SERUM 1.47 mg/dL (0.57-1.11); TOTAL PROTEIN 7.4 g/dL (6.5-8.1)
[2023-03-18 15:50] LABS: EPITHELIAL CELLS,URINE FEW /LPF; RBC,URINE 0-5 /HPF (0-5)
[2023-03-18 15:52] LABS: POTASSIUM 5.6 mmol/L (3.5-5.1)
[2023-03-18 16:46] LABS: ALBUMIN 3.7 g/dL (3.5-5.0); ANION GAP 15.5 mmol/L (8-16); BILIRUBIN,TOTAL 1.7 mg/dL (0.2-1.2); CALCIUM 9.5 mg/dL (8.4-10.2); CREATININE, SERUM 1.51 mg/dL (0.57-1.11); TOTAL PROTEIN 7.4 g/dL (6.5-8.1)
[2023-03-18 16:58] LABS: POTASSIUM 5.5 mmol/L (3.5-5.1)
[2023-03-18] MEDS ORDERED: ONDANSETRON HCL INJ 2MG/ML 2ML 2 MG/ML VIAL IV PRN (17:15)
[2023-03-18] MEDS ORDERED: SOD POLYSTYRENE SULFONATE SUSP 15 GM/60 ML BTL PO ONE (17:45)
[2023-03-18] MEDS: SODIUM CHLORIDE 0.9% 1000ML 1,000 ML IV SCH (18:28)
[2023-03-18 20:00] VITALS: BP 125/63; PULSE 70; RESP 18; TEMP 98.1; O2SAT 100
[2023-03-18 22:00] VITALS: BP 125/63; PULSE 70; RESP 18; TEMP 98.1; O2SAT 100
[2023-03-18] MEDS ORDERED: IBUPROFEN800 MG PO (22:54)
[2023-03-18] MEDS ORDERED: METOPROLOL TAR100 MG PO (22:54)
[2023-03-18] MEDS ORDERED: LOSARTAN POTAS100 MG PO (22:54)
[2023-03-18] MEDS ORDERED: SPIRONOLACTONE25 MG PO (22:54)
[2023-03-18] MEDS ORDERED: ONDANSETRON ODT4 MG PO (22:54)
[2023-03-18] MEDS ORDERED: PIOGLITAZONE30 MG PO (22:54)
[2023-03-18] MEDS ORDERED: ELIQUIS5 MG PO (22:54)
[2023-03-18] MEDS ORDERED: AMIODARONE HCL200 MG PO (22:54)
[2023-03-18] MEDS ORDERED: ATORVASTATIN CA20 MG PO (22:54)
[2023-03-18] MEDS: ATORVASTATIN 20 MG TAB PO SCH (23:46)
[2023-03-18] MEDS: METOPROLOL TARTRATE 50 MG TAB PO SCH (23:46)
[2023-03-18] MEDS: AMIODARONE HCL 200 MG TAB PO SCH (23:47)
[2023-03-18] MEDS: APIXABAN 5 MG TABLET PO SCH (23:47)
[2023-03-19] VITALS (8 sets, daily range): BP systolic 109–139; BP diastolic 47–77; PULSE 69–82; RESP 16–20; TEMP 97.7–98.6; O2SAT 98–100
[2023-03-19] MEDS: SODIUM CHLORIDE 0.9% 1000ML 1,000 ML IV SCH ×2 (06:19→09:30)
[2023-03-19 07:17] LABS: BASOPHILS % 0.6 % (0.0-1.0); EOSINOPHILS % 0.3 % (0.0-6.0); HEMATOCRIT 39.1 % (34.2-44.1); HEMOGLOBIN 13.4 g/dL (12.0-16.0); LYMPHOCYTES # (AUTO) 1.6 (1.0-3.2); LYMPHOCYTES % 22.6 % (18.0-39.1); MEAN CORPUSCULAR HEMOGLOBIN 30.9 pg (28-32); MEAN CORPUSCULAR HGB CONC 34.3 g/dL (31-35); MEAN CORPUSCULAR VOLUME 90.1 fL (81-99); MONOCYTES # (AUTO) 0.9 (0.2-0.8); MONOCYTES % 12.7 % (4.4-11.3); NEUTROPHILS # (AUTO) 4.4 (2.1-6.9); NEUTROPHILS % 63.5 % (38.7-80.0); PLATELET COUNT 158 x10e3/uL (140-360); RED BLOOD COUNT 4.34 x10e6/uL (3.6-5.1); RED CELL DISTRIBUTION WIDTH 13.6 % (11.7-14.4); WHITE BLOOD COUNT 6.99 x10e3/uL (4.8-10.8)
[2023-03-19 07:46] LABS: ALBUMIN 3.4 g/dL (3.5-5.0); ANION GAP 15.3 mmol/L (8-16); BILIRUBIN,TOTAL 1.6 mg/dL (0.2-1.2); CALCIUM 9.4 mg/dL (8.4-10.2); CREATININE, SERUM 1.23 mg/dL (0.57-1.11); POTASSIUM 4.3 mmol/L (3.5-5.1); TOTAL PROTEIN 6.7 g/dL (6.5-8.1)
[2023-03-19] MEDS: METOPROLOL TARTRATE 50 MG TAB PO SCH ×2 (11:00→21:18)
[2023-03-19] MEDS ORDERED: SODIUM CHLORIDE 0.45% 1,000 ML IV ONE (11:00)
[2023-03-19] MEDS: APIXABAN 5 MG TABLET PO SCH ×2 (11:31→21:15)
[2023-03-19] MEDS ORDERED: DEXTROSE 50% SYRINGE 50 ML IV PRN (13:45)
[2023-03-19] MEDS: INSULIN LISPRO 100 UNIT/1 ML 3ML VIAL SQ SCH ×2 (17:07→21:00)
[2023-03-19] MEDS: AMIODARONE HCL 200 MG TAB PO SCH (21:15)
[2023-03-19] MEDS: ATORVASTATIN 20 MG TAB PO SCH (21:16)
[2023-03-20] VITALS (8 sets, daily range): BP systolic 117–131; BP diastolic 49–74; PULSE 68–72; RESP 16–20; TEMP 97.4–98.5; O2SAT 98–100
[2023-03-20 06:51] LABS: BASOPHILS # (AUTO) 0.1 (0.0-0.1); BASOPHILS % 0.7 % (0.0-1.0); EOSINOPHILS % 0.6 % (0.0-6.0); HEMATOCRIT 37.9 % (34.2-44.1); HEMOGLOBIN 12.8 g/dL (12.0-16.0); LYMPHOCYTES # (AUTO) 1.6 (1.0-3.2); LYMPHOCYTES % 22.4 % (18.0-39.1); MEAN CORPUSCULAR HEMOGLOBIN 30.4 pg (28-32); MEAN CORPUSCULAR HGB CONC 33.8 g/dL (31-35); MONOCYTES # (AUTO) 0.9 (0.2-0.8); MONOCYTES % 12.6 % (4.4-11.3); NEUTROPHILS # (AUTO) 4.6 (2.1-6.9); NEUTROPHILS % 63.3 % (38.7-80.0); PLATELET COUNT 160 x10e3/uL (140-360); RED BLOOD COUNT 4.21 x10e6/uL (3.6-5.1); RED CELL DISTRIBUTION WIDTH 14.1 % (11.7-14.4); WHITE BLOOD COUNT 7.24 x10e3/uL (4.8-10.8)
[2023-03-20 07:28] LABS: ANION GAP 11.1 mmol/L (8-16); CALCIUM 9.1 mg/dL (8.4-10.2); CREATININE, SERUM 1.07 mg/dL (0.57-1.11); POTASSIUM 4.1 mmol/L (3.5-5.1)
[2023-03-20] MEDS: INSULIN LISPRO 100 UNIT/1 ML 3ML VIAL SQ SCH ×4 (07:30→21:25)
[2023-03-20] MEDS: SODIUM CHLORIDE 0.9% 1000ML 1,000 ML IV SCH ×2 (10:12→21:23)
[2023-03-20] MEDS ORDERED: IOPAMIDOL 370 MG/ML 100 ML INFUS..BTL INJ ONE (10:51)
[2023-03-20] MEDS ORDERED: ONDANSETRON HCL 4 MG ORAL DISINTEGRATING TAB PO PRN (12:00)
[2023-03-20] MEDS: METOPROLOL TARTRATE 50 MG TAB PO SCH (13:04)
[2023-03-20] MEDS: APIXABAN 5 MG TABLET PO SCH (13:04)
[2023-03-20] MEDS: AMIODARONE HCL 200 MG TAB PO SCH (21:23)
[2023-03-20] MEDS: ATORVASTATIN 20 MG TAB PO SCH (21:26)
[2023-03-20 21:45] LABS: CREATININE,URINE RANDOM 81.77 mg/dL (47-110); TOTAL PROTEIN, URINE 7.7 mg/dL (1-14)
[2023-03-21] VITALS: BP 161/53; PULSE 70; RESP 18; TEMP 97.7; O2SAT 97
[2023-03-21] MEDS: APIXABAN 5 MG TABLET PO SCH ×2 (00:22→13:08)
[2023-03-21] MEDS: METOPROLOL TARTRATE 50 MG TAB PO SCH ×2 (00:25→13:08)
[2023-03-21 04:00] VITALS: BP 124/63; PULSE 75; RESP 18; TEMP 97.7; O2SAT 97
[2023-03-21 06:26] LABS: ANION GAP 10.4 mmol/L (8-16); CALCIUM 8.5 mg/dL (8.4-10.2); CREATININE, SERUM 0.88 mg/dL (0.57-1.11); POTASSIUM 4.4 mmol/L (3.5-5.1)
[2023-03-21] MEDS: INSULIN LISPRO 100 UNIT/1 ML 3ML VIAL SQ SCH ×2 (07:30→11:30)
[2023-03-21 07:44] VITALS: BP 118/56; PULSE 73; RESP 20; TEMP 97.1; O2SAT 100
[2023-03-21 07:48] VITALS: BP 118/56; PULSE 73; RESP 20; TEMP 97.1; O2SAT 100
[2023-03-21 11:35] VITALS: BP 142/67; PULSE 76; RESP 18; TEMP 97.9; O2SAT 100
[2023-03-21] MEDS ORDERED: SODIUM CHLORIDE 0.9% 250ML 250 ML ONE (13:25)
[2023-03-21 16:33] VITALS: BP 114/58; PULSE 69; RESP 20; TEMP 97.3; O2SAT 100
== END 2023-03-21 18:42 | disposition home or self-care (01) | DRG 683 ==
LOC: ER 12:34 → ERHOLD 17:11 → MED/SURG2 19:52 → OBSVTOIN 03-20 08:37
PROVIDERS: ADMIT Internal Medicine; ATTEND Internal Medicine
DX: N17.9 Acute kidney failure, unspecified (principal); E87.1 Hypo-osmolality and hyponatremia; E87.5 Hyperkalemia; I12.9 Hypertensive chronic kidney disease with stage 1 through stage 4 chronic kidney disease, or unspecified chronic kidney disease; E11.22 Type 2 diabetes mellitus with diabetic chronic kidney disease; N18.2 Chronic kidney disease, stage 2 (mild); E86.0 Dehydration; N28.9 Disorder of kidney and ureter, unspecified; R53.1 Weakness; E78.5 Hyperlipidemia, unspecified; E11.51 Type 2 diabetes mellitus with diabetic peripheral angiopathy without gangrene; I48.91 Unspecified atrial fibrillation; R11.2 Nausea with vomiting, unspecified; F41.9 Anxiety disorder, unspecified; F32.A Depression, unspecified; K57.90 Diverticulosis of intestine, part unspecified, without perforation or abscess without bleeding; R53.83 Other fatigue; Z83.3 Family history of diabetes mellitus; Z79.890 Hormone replacement therapy; Z79.899 Other long term (current) drug therapy
CPT/HCPCS: 36415; 74176; 74178; 80048; 80053; 81001; 82570; 82948; 83690; 84156; 85025; 93005; 96372; 99284; G0378; J0696; J2405; J7030; J7050; Q9967; U0002

== ENCOUNTER 2024-03-05 16:08 | Emergency (ER) | payer MEDICARE, OTHER ==
[~2024-03-05] VITALS: Ht 157.5 cm; Wt 83.5 kg
[~2024-03-05 16:08] MED LIST changes: +ATORVASTATIN CA20 MG PO; +ELIQUIS5 MG PO; +FUROSEMIDE40 MG PO; +IBUPROFEN800 MG PO; +LOSARTAN POTASS25 MG PO; +METOPROLOL TAR100 MG PO; +ONDANSETRON ODT4 MG PO; +PAROXETINE HCL20 MG PO; +SPIRONOLACTONE25 MG PO; +TRESIBA FL100 UNIT/1
[2024-03-05 16:18] VITALS: PULSE 84; RESP 15; TEMP 98.2; O2SAT 100
== END 2024-03-05 16:53 | disposition home or self-care (01) ==
LOC: ER 16:12
DX: I10 Essential (primary) hypertension (principal); E11.9 Type 2 diabetes mellitus without complications; I48.91 Unspecified atrial fibrillation; E03.9 Hypothyroidism, unspecified; E78.5 Hyperlipidemia, unspecified; F41.9 Anxiety disorder, unspecified; F32.A Depression, unspecified; M54.9 Dorsalgia, unspecified; G89.29 Other chronic pain
CPT/HCPCS: 99283

== ENCOUNTER 2024-03-19 11:02 | Inpatient (IN) | payer MEDICARE ==
[~2024-03-19] VITALS: Ht 157.5 cm; Wt 83.5 kg
[2024-03-19 12:00] LABS: BASOPHILS # (AUTO) 0.1 (0.0-0.1); BASOPHILS % 0.6 % (0.0-1.0); EOSINOPHILS % 0.3 % (0.0-6.0); HEMOGLOBIN 12.1 g/dL (12.0-16.0); LYMPHOCYTES # (AUTO) 1.3 (1.0-3.2); LYMPHOCYTES % 14.9 % (18.0-39.1); MEAN CORPUSCULAR HEMOGLOBIN 31.8 pg (28-32); MEAN CORPUSCULAR HGB CONC 31.8 g/dL (31-35); MONOCYTES # (AUTO) 0.9 (0.2-0.8); NEUTROPHILS # (AUTO) 6.4 (2.1-6.9); NEUTROPHILS % 73.5 % (38.7-80.0); PLATELET COUNT 162 x10e3/uL (140-360); RED CELL DISTRIBUTION WIDTH 15.9 % (11.7-14.4); WHITE BLOOD COUNT 8.74 x10e3/uL (4.8-10.8)
[2024-03-19 12:18] LABS: INFLUENZA A AG NEGATIVE (NEGATIVE)
[2024-03-19 12:25] LABS: CORONAVIRUS COVID-19 AG NEGATIVE (NEGATIVE); INFLUENZA B AG NEGATIVE (NEGATIVE)
[2024-03-19 14:23] LABS: INR 1.29; PROTHROMBIN TIME 16.8 seconds (11.9-14.5)
[2024-03-19 14:24] LABS: PARTIAL THROMBOPLASTIN TIME 34.1 seconds (23.8-35.5)
[2024-03-19 14:32] LABS: ALBUMIN 3.9 g/dL (3.5-5.0); ALBUMIN/GLOBULIN RATIO 1.1 (0.8-2.0); ANION GAP 18.4 mmol/L (8-16); BILIRUBIN,TOTAL 1.9 mg/dL (0.2-1.2); CALCIUM 9.7 mg/dL (8.4-10.2); CREATININE, SERUM 0.86 mg/dL (0.57-1.11); POTASSIUM 4.4 mmol/L (3.5-5.1); TOTAL PROTEIN 7.4 g/dL (6.5-8.1)
[2024-03-19 14:38] LABS: TROPONIN I 0.01 ng/mL (0-0.300)
[2024-03-19 14:47] VITALS: PULSE 71; RESP 20; TEMP 97.2
[2024-03-19] MEDS: FUROSEMIDE INJ 10 MG/ML 4 ML VIAL IV ONE (15:07)
[2024-03-19 16:00] VITALS: BP 165/83; PULSE 91; RESP 20; TEMP 98.1; O2SAT 100
[2024-03-19] MEDS ORDERED: HYDRALAZINE HCL50 MG PO (17:35)
[2024-03-19] MEDS ORDERED: CELEXA10 MG PO (17:35)
[2024-03-19] MEDS ORDERED: OLMESARTAN PO (17:35)
[2024-03-19] MEDS ORDERED: NEURONTIN100 MG PO (17:35)
[2024-03-19] MEDS ORDERED: DEXTROSE 50% SYRINGE 50 ML IV PRN (18:45)
[2024-03-19 20:00] VITALS: BP 170/72; PULSE 80; RESP 18; TEMP 97.7; O2SAT 98
[2024-03-19] MEDS: GABAPENTIN 100 MG CAP PO SCH (20:41)
[2024-03-19] MEDS: AMIODARONE HCL 200 MG TAB PO SCH (20:42)
[2024-03-19] MEDS: METOPROLOL TARTRATE 50 MG TAB PO SCH (20:43)
[2024-03-19] MEDS: ATORVASTATIN 40 MG TAB PO SCH (20:43)
[2024-03-19] MEDS: INSULIN LISPRO 100 UNIT/1 ML 3ML VIAL SQ SCH (20:44)
[2024-03-19 21:58] VITALS: BP 170/72; PULSE 80; RESP 18; TEMP 97.7; O2SAT 98
[2024-03-19 22:15] LABS: TROPONIN I 0.006 ng/mL (0-0.300)
[2024-03-19 23:30] VITALS: BP 153/72; PULSE 70; RESP 20; TEMP 98.8; O2SAT 98
[2024-03-20] VITALS (7 sets, daily range): BP systolic 145–175; BP diastolic 60–76; PULSE 70–81; RESP 17–20; TEMP 97–98.2; O2SAT 96–98
[2024-03-20 05:09] LABS: BASOPHILS % 0.6 % (0.0-1.0); EOSINOPHILS # (AUTO) 0.1 (0.0-0.4); EOSINOPHILS % 0.7 % (0.0-6.0); HEMOGLOBIN 11.7 g/dL (12.0-16.0); LYMPHOCYTES % 14.8 % (18.0-39.1); MEAN CORPUSCULAR HEMOGLOBIN 31.6 pg (28-32); MEAN CORPUSCULAR HGB CONC 31.6 g/dL (31-35); MONOCYTES % 13.9 % (4.4-11.3); NEUTROPHILS # (AUTO) 4.8 (2.1-6.9); NEUTROPHILS % 69.7 % (38.7-80.0); PLATELET COUNT 168 x10e3/uL (140-360); RED CELL DISTRIBUTION WIDTH 15.4 % (11.7-14.4); WHITE BLOOD COUNT 6.84 x10e3/uL (4.8-10.8)
[2024-03-20] MEDS: LEVOTHYROXINE SODIUM 50 MCG TAB PO SCH (05:31)
[2024-03-20 05:46] LABS: ALBUMIN 3.3 g/dL (3.5-5.0); ANION GAP 14.5 mmol/L (8-16); BILIRUBIN,TOTAL 1.8 mg/dL (0.2-1.2); CALCIUM 9.2 mg/dL (8.4-10.2); CHOL/HDL RATIO 3.4 (3.0-3.6); CREATININE, SERUM 0.98 mg/dL (0.57-1.11); POTASSIUM 3.5 mmol/L (3.5-5.1); TOTAL PROTEIN 6.6 g/dL (6.5-8.1)
[2024-03-20 05:52] LABS: TROPONIN I 0.002 ng/mL (0-0.300)
[2024-03-20] MEDS: CITALOPRAM HYDROBROMIDE 20 MG TAB PO SCH (08:00)
[2024-03-20] MEDS: HYDRALAZINE HCL 100 MG TABLET PO SCH (08:02)
[2024-03-20] MEDS: APIXABAN 5 MG TABLET PO SCH (08:02)
[2024-03-20] MEDS: LOSARTAN POTASSIUM 100 MG TAB PO SCH (09:00)
[2024-03-20] MEDS: PIOGLITAZONE HCL 15 MG TAB PO SCH (09:00)
[2024-03-20] MEDS: FUROSEMIDE INJ 10 MG/ML 4 ML VIAL IV SCH (15:08)
[2024-03-21] VITALS (7 sets, daily range): BP systolic 141–158; BP diastolic 62–82; PULSE 70–80; RESP 17–19; TEMP 97.5–98.9; O2SAT 96–100
[2024-03-21] MEDS ORDERED: COZAAR100 MG PO (19:45)
== END 2024-03-21 20:30 | disposition home or self-care (01) | DRG 291 ==
LOC: ER 11:12 → ERHOLD 14:31 → MED/SURG 15:51
PROVIDERS: ADMIT Internal Medicine; ATTEND Internal Medicine
DX: I11.0 Hypertensive heart disease with heart failure (principal); I50.33 Acute on chronic diastolic (congestive) heart failure; I48.20 Chronic atrial fibrillation, unspecified; Z79.01 Long term (current) use of anticoagulants; I16.0 Hypertensive urgency; E11.9 Type 2 diabetes mellitus without complications; E03.9 Hypothyroidism, unspecified; E78.5 Hyperlipidemia, unspecified; M54.9 Dorsalgia, unspecified; F41.9 Anxiety disorder, unspecified; F32.A Depression, unspecified; Z11.52 Encounter for screening for COVID-19; Z79.4 Long term (current) use of insulin; Z79.890 Hormone replacement therapy
CPT/HCPCS: 36415; 71045; 80053; 80061; 82550; 82948; 83605; 83735; 83880; 84484; 85025; 85610; 85730; 87040; 93005; 93306; 96372; 99252; 99284; J1940

== ENCOUNTER 2024-04-27 11:57 | Emergency (ER) | payer MEDICARE ==
[~2024-04-27] VITALS: Ht 154.9 cm; Wt 83.5 kg
[~2024-04-27 11:57] MED LIST changes: +CELEXA10 MG PO; +COZAAR100 MG PO; +HYDRALAZINE HCL50 MG PO; +NEURONTIN100 MG PO; +OLMESARTAN PO
[2024-04-27 12:15] VITALS: TEMP 97.6
[2024-04-27] MEDS: TRAMADOL HCL 50 MG TAB PO ONE (12:41)
[2024-04-27] MEDS: TETANUS/DIPHTHERIA TOX ADULT 0.5 ML SYR IM ONE (12:42)
[2024-04-27 14:30] VITALS: PULSE 70; RESP 18; O2SAT 98
[2024-04-27] MEDS ORDERED: TRAMADOL HCL 50 MG TAB PO ONE (14:45)
[2024-04-27] MEDS ORDERED: ULTRAM 50MG50 MG PO (14:49)
[2024-04-27] MEDS: ACETAMINOPHEN 325 MG TAB PO ONE (15:08)
== END 2024-04-27 15:25 | disposition home or self-care (01) ==
LOC: ER 12:24
DX: S05.12XA Contusion of eyeball and orbital tissues, left eye, initial encounter (principal); S40.021A Contusion of right upper arm, initial encounter; M25.551 Pain in right hip; W18.39XA Other fall on same level, initial encounter; Y93.01 Activity, walking, marching and hiking; Y92.89 Other specified places as the place of occurrence of the external cause
CPT/HCPCS: 70450; 70486; 72125; 90471; 90714; 99283

== ENCOUNTER 2024-05-05 15:52 | Inpatient (IN) | payer MEDICARE ==
[2024-05-05] VITALS (7 sets, daily range): BP systolic 119–127; BP diastolic 58–61; PULSE 70–81; RESP 14–18; TEMP 97.8–98.4; O2SAT 99–100
[~2024-05-05] VITALS: Ht 154.9 cm; Wt 83.5 kg
[~2024-05-05 15:52] MED LIST changes: +ULTRAM 50MG50 MG PO
[2024-05-05] MEDS ORDERED: DEXTROSE 50% SYRINGE 50 ML IV ONE (16:20)
[2024-05-05] MEDS: ONDANSETRON HCL INJ 2MG/ML 2ML 2 MG/ML VIAL IV STA (16:31)
[2024-05-05] MEDS: DEXTROSE 50% SYRINGE 50 ML IV STA (16:31)
[2024-05-05 16:32] LABS: BASOPHILS # (AUTO) 0.1 (0.0-0.1); BASOPHILS % 0.5 % (0.0-1.0); EOSINOPHILS % 0.4 % (0.0-6.0); HEMATOCRIT 41.1 % (34.2-44.1); HEMOGLOBIN 12.9 g/dL (12.0-16.0); LYMPHOCYTES # (AUTO) 1.8 (1.0-3.2); MEAN CORPUSCULAR HGB CONC 31.4 g/dL (31-35); MONOCYTES % 9.2 % (4.4-11.3); NEUTROPHILS # (AUTO) 8.1 (2.1-6.9); NEUTROPHILS % 73.6 % (38.7-80.0); PLATELET COUNT 208 x10e3/uL (140-360); RED BLOOD COUNT 4.03 x10e6/uL (3.6-5.1); RED CELL DISTRIBUTION WIDTH 13.3 % (11.7-14.4); WHITE BLOOD COUNT 11.02 x10e3/uL (4.8-10.8)
[2024-05-05 16:57] LABS: ALBUMIN 3.9 g/dL (3.5-5.0); ALBUMIN/GLOBULIN RATIO 1.1 (0.8-2.0); ANION GAP 21.2 mmol/L (8-16); BILIRUBIN,TOTAL 1.1 mg/dL (0.2-1.2); CALCIUM 9.5 mg/dL (8.4-10.2); CREATININE, SERUM 1.58 mg/dL (0.57-1.11); TOTAL PROTEIN 7.4 g/dL (6.5-8.1)
[2024-05-05 17:03] LABS: POTASSIUM 5.2 mmol/L (3.5-5.1); TROPONIN I 0.061 ng/mL (0-0.300)
[2024-05-05] MEDS ORDERED: SODIUM CHLORIDE 0.9% 1000ML 1,000 ML IV SCH (17:15)
[2024-05-05] MEDS ORDERED: MELATONIN 3 MG TAB PO PRN (18:45)
[2024-05-05] MEDS ORDERED: MAGNESIUM/ALUMINUM/SIMETHICONE 30 ML UDC PO PRN (18:45)
[2024-05-05] MEDS ORDERED: TRAMADOL/APAP 37.5MG-325MG TAB PO PRN (18:45)
[2024-05-05] MEDS ORDERED: HYDRALAZINE HCL 20 MG/ML VIAL IV PRN (18:45)
[2024-05-05] MEDS ORDERED: GUAIFENESIN/DEXTROMETHORPHAN LIQD 5 ML UDC PO PRN (18:45)
[2024-05-05] MEDS ORDERED: ACETAMINOPHEN 325 MG TAB PO PRN (18:45)
[2024-05-05] MEDS ORDERED: DOCUSATE SODIUM 100 MG CAP PO PRN (18:45)
[2024-05-05] MEDS: INSULIN REGULAR, HUMAN 100 UNIT/1 ML SQ SCH (19:42)
[2024-05-05] MEDS: DEXTROSE 50% SYRINGE 50 ML IV PRN (19:49)
[2024-05-05 20:35] LABS: CLARITY,URINE CLEAR (CLEAR); COLOR,URINE YELLOW (YELLOW); LEUKOCYTE ESTERASE ,URINE NEGATIVE (NEGATIVE); NITRITE,URINE NEGATIVE (NEGATIVE); PH,URINE 5.5 (5 - 7); PROTEIN,URINE DIPSTICK NEGATIVE (NEGATIVE)
[2024-05-05 20:36] LABS: BILIRUBIN,URINE NEGATIVE (NEGATIVE); GLUCOSE, URINE 500 (NEGATIVE); KETONES,URINE NEGATIVE (NEGATIVE); URINE UROBILINOGEN 0.2 mg/dL (0.2 - 1)
[2024-05-05 20:40] LABS: BACTERIA,URINE FEW /HPF; EPITHELIAL CELLS,URINE FEW /LPF; TRANSITIONAL EPI CELLS,URINE FEW
[2024-05-05] MEDS: GABAPENTIN 100 MG CAP PO SCH (21:11)
[2024-05-05] MEDS: ATORVASTATIN 40 MG TAB PO SCH (21:11)
[2024-05-05] MEDS: TRAMADOL HCL 50 MG TAB PO PRN (21:11)
[2024-05-05] MEDS: METOPROLOL TARTRATE 50 MG TAB PO SCH (21:12)
[2024-05-06] VITALS (8 sets, daily range): BP systolic 106–126; BP diastolic 51–61; PULSE 70–80; RESP 17–19; TEMP 97.4–98.3; O2SAT 96–99
[2024-05-06] MEDS: ACETAMINOPHEN/CODEINE 300MG - 30MG TAB PO PRN (00:25)
[2024-05-06] MEDS ORDERED: JARDIANCE25 MG PO (04:10)
[2024-05-06] MEDS ORDERED: OZEMPIC0.25 MG/02 SC (04:10)
[2024-05-06] MEDS ORDERED: GLIMEPIRIDE2 MG PO (04:10)
[2024-05-06 08:02] LABS: BASOPHILS % 0.5 % (0.0-1.0); EOSINOPHILS # (AUTO) 0.1 (0.0-0.4); EOSINOPHILS % 0.9 % (0.0-6.0); HEMATOCRIT 37.2 % (34.2-44.1); HEMOGLOBIN 12.5 g/dL (12.0-16.0); LYMPHOCYTES # (AUTO) 1.3 (1.0-3.2); LYMPHOCYTES % 15.6 % (18.0-39.1); MEAN CORPUSCULAR HEMOGLOBIN 32.1 pg (28-32); MEAN CORPUSCULAR HGB CONC 33.6 g/dL (31-35); MEAN CORPUSCULAR VOLUME 95.4 fL (81-99); MONOCYTES # (AUTO) 1.1 (0.2-0.8); MONOCYTES % 12.9 % (4.4-11.3); NEUTROPHILS % 69.6 % (38.7-80.0); PLATELET COUNT 216 x10e3/uL (140-360); RED CELL DISTRIBUTION WIDTH 13.6 % (11.7-14.4); WHITE BLOOD COUNT 8.61 x10e3/uL (4.8-10.8)
[2024-05-06 08:31] LABS: MAGNESIUM 2.3 MG/DL (1.3-2.1); PHOSPHORUS 3.4 MG/DL (2.3-4.7)
[2024-05-06 08:50] LABS: ANION GAP 18.4 mmol/L (8-16); CALCIUM 9.7 mg/dL (8.4-10.2); CREATININE, SERUM 1.42 mg/dL (0.57-1.11); POTASSIUM 4.4 mmol/L (3.5-5.1)
[2024-05-06 08:53] LABS: THYROID STIMULATING HORMONE 3.249 uIU/mL (0.350-4.940)
[2024-05-06] MEDS: CITALOPRAM HYDROBROMIDE 20 MG TAB PO SCH (09:41)
[2024-05-06] MEDS: AMIODARONE HCL 200 MG TAB PO SCH (09:41)
[2024-05-06] MEDS: APIXABAN 5 MG TABLET PO SCH (09:41)
[2024-05-06] MEDS: LEVOTHYROXINE SODIUM 50 MCG TAB PO SCH (09:41)
[2024-05-06] MEDS: MULTIVITAMINS/MINERALS TAB PO SCH (09:42)
[2024-05-06] MEDS: FUROSEMIDE 40 MG TAB PO SCH (09:42)
[2024-05-06] MEDS: HYDRALAZINE HCL 25 MG TAB PO SCH (09:42)
[2024-05-06] MEDS ORDERED: COZAAR100 MG PO (11:50)
[2024-05-06] MEDS: ONDANSETRON HCL INJ 2MG/ML 2ML 2 MG/ML VIAL IV PRN (18:23)
[2024-05-07 03:20] VITALS: BP 118/50; PULSE 78; RESP 18; TEMP 98.1; O2SAT 100
[2024-05-07 08:17] VITALS: BP 119/79; PULSE 70; RESP 18; TEMP 97.7; O2SAT 97
[2024-05-07 09:00] VITALS: BP 119/79; PULSE 70; RESP 18; TEMP 97.7; O2SAT 97
[2024-05-07 11:43] VITALS: BP 116/57; PULSE 71; RESP 20; TEMP 97.9; O2SAT 99
[2024-05-07 16:00] VITALS: BP 106/44; PULSE 70; RESP 20; TEMP 97.8; O2SAT 97
[2024-05-07 17:10] VITALS: BP 106/44; PULSE 70; RESP 20; TEMP 97.8; O2SAT 97
== END 2024-05-07 17:20 | disposition home health service (06) | DRG 641 ==
LOC: ER 16:05 → ERHOLD 17:27 → MED/SURG 20:30
PROVIDERS: ADMIT Internal Medicine Critical Care Medicine; ATTEND Internal Medicine Critical Care Medicine
DX: E87.1 Hypo-osmolality and hyponatremia (principal); N17.9 Acute kidney failure, unspecified; I50.32 Chronic diastolic (congestive) heart failure; I48.20 Chronic atrial fibrillation, unspecified; I11.0 Hypertensive heart disease with heart failure; E87.5 Hyperkalemia; E11.649 Type 2 diabetes mellitus with hypoglycemia without coma; R53.81 Other malaise; E78.5 Hyperlipidemia, unspecified; F41.8 Other specified anxiety disorders; E03.9 Hypothyroidism, unspecified; M54.9 Dorsalgia, unspecified; N28.9 Disorder of kidney and ureter, unspecified; R11.12 Projectile vomiting; Z79.4 Long term (current) use of insulin; Z79.01 Long term (current) use of anticoagulants; Z79.890 Hormone replacement therapy; Z79.84 Long term (current) use of oral hypoglycemic drugs; Z95.0 Presence of cardiac pacemaker; Z88.8 Allergy status to other drugs, medicaments and biological substances
CPT/HCPCS: 36415; 74176; 80048; 80053; 81001; 82948; 83036; 83690; 83735; 84100; 84443; 84484; 85025; 93005; 94799; 99252; 99284; J2405; J7799

== ENCOUNTER 2024-06-04 12:55 | Inpatient (IN) | payer MEDICARE ==
[~2024-06-04] VITALS: Ht 157.5 cm; Wt 102.1 kg
[~2024-06-04 12:55] MED LIST changes: +JARDIANCE25 MG PO; +OZEMPIC0.25 MG/02 SC
[2024-06-04 14:10] LABS: BASOPHILS # (AUTO) 0.1 (0.0-0.1); BASOPHILS % 0.8 % (0.0-1.0); EOSINOPHILS # (AUTO) 0.1 (0.0-0.4); EOSINOPHILS % 0.8 % (0.0-6.0); HEMATOCRIT 40.6 % (34.2-44.1); HEMOGLOBIN 13.4 g/dL (12.0-16.0); LYMPHOCYTES % 23.6 % (18.0-39.1); MEAN CORPUSCULAR HEMOGLOBIN 31.6 pg (28-32); MEAN CORPUSCULAR VOLUME 95.8 fL (81-99); MONOCYTES # (AUTO) 0.9 (0.2-0.8); MONOCYTES % 10.8 % (4.4-11.3); NEUTROPHILS # (AUTO) 5.4 (2.1-6.9); PLATELET COUNT 220 x10e3/uL (140-360); RED BLOOD COUNT 4.24 x10e6/uL (3.6-5.1); RED CELL DISTRIBUTION WIDTH 13.9 % (11.7-14.4); WHITE BLOOD COUNT 8.63 x10e3/uL (4.8-10.8)
[2024-06-04 14:40] LABS: ALBUMIN 4.2 g/dL (3.5-5.0); ALBUMIN/GLOBULIN RATIO 1.2 (0.8-2.0); ANION GAP 16.2 mmol/L (8-16); CALCIUM 10.5 mg/dL (8.4-10.2); CREATININE, SERUM 1.54 mg/dL (0.57-1.11); TOTAL PROTEIN 7.7 g/dL (6.5-8.1)
[2024-06-04 14:42] LABS: POTASSIUM 6.2 mmol/L (3.5-5.1)
[2024-06-04] MEDS: SOD POLYSTYRENE SULFONATE SUSP 15 GM/60 ML BTL PO ONE (15:04)
[2024-06-04] MEDS: SODIUM BICARBONATE 8.4% INJ 50 ML SYR IV STA (15:04)
[2024-06-04] MEDS: DEXTROSE 50% SYRINGE 50 ML IV STA (15:08)
[2024-06-04] MEDS: INSULIN REGULAR, HUMAN 100 UNIT/1 ML IV ONE (15:12)
[2024-06-04] MEDS: ALBUTEROL SULF 0.083% NEB SOLN 3 ML NEB NEB STA (15:13)
[2024-06-04 15:30] VITALS: PULSE 76; RESP 18; O2SAT 97
[2024-06-04 15:37] LABS: BILIRUBIN,URINE NEGATIVE (NEGATIVE); CLARITY,URINE CLOUDY (CLEAR); COLOR,URINE STRAW (YELLOW); GLUCOSE, URINE >=1000 (NEGATIVE); KETONES,URINE NEGATIVE (NEGATIVE); LEUKOCYTE ESTERASE ,URINE SMALL (NEGATIVE); NITRITE,URINE POSITIVE (NEGATIVE); PH,URINE 5.5 (5 - 7); PROTEIN,URINE DIPSTICK NEGATIVE (NEGATIVE); URINE UROBILINOGEN 0.2 mg/dL (0.2 - 1)
[2024-06-04 15:38] LABS: WBC,URINE (MAN) >50 /HPF (0-5)
[2024-06-04 15:39] LABS: BACTERIA,URINE MANY /HPF; EPITHELIAL CELLS,URINE FEW /LPF; RBC,URINE 0-5 /HPF (0-5)
[2024-06-04] MEDS: CALCIUM GLUC 1 G/50 ML NACL 50 ML IV SCH ×2 (18:53→22:46)
[2024-06-04 19:23] VITALS: PULSE 72; RESP 18
[2024-06-04 19:30] VITALS: PULSE 72; RESP 18; O2SAT 99
[2024-06-04 19:45] VITALS: BP 129/55; PULSE 71; RESP 18; TEMP 97.5; O2SAT 97
[2024-06-04 20:00] VITALS: BP 129/55; PULSE 71; RESP 16; TEMP 97.6; O2SAT 97
[2024-06-05] VITALS: BP 108/51; PULSE 71; RESP 17; TEMP 97.5; O2SAT 100
[2024-06-05 06:53] LABS: CREATININE,URINE RANDOM 21.57 mg/dL (47-110)
[2024-06-05 06:55] LABS: TOTAL PROTEIN, URINE < 6.8 mg/dL (1-14)
[2024-06-05 07:17] LABS: BASOPHILS # (AUTO) 0.1 (0.0-0.1); BASOPHILS % 0.9 % (0.0-1.0); EOSINOPHILS # (AUTO) 0.1 (0.0-0.4); LYMPHOCYTES # (AUTO) 1.7 (1.0-3.2); LYMPHOCYTES % 24.5 % (18.0-39.1); MEAN CORPUSCULAR HEMOGLOBIN 32.1 pg (28-32); MEAN CORPUSCULAR HGB CONC 33.3 g/dL (31-35); MEAN CORPUSCULAR VOLUME 96.3 fL (81-99); MONOCYTES # (AUTO) 0.9 (0.2-0.8); MONOCYTES % 12.8 % (4.4-11.3); NEUTROPHILS # (AUTO) 4.2 (2.1-6.9); NEUTROPHILS % 60.1 % (38.7-80.0); PLATELET COUNT 191 x10e3/uL (140-360); RED BLOOD COUNT 3.74 x10e6/uL (3.6-5.1); RED CELL DISTRIBUTION WIDTH 13.8 % (11.7-14.4); WHITE BLOOD COUNT 6.94 x10e3/uL (4.8-10.8)
[2024-06-05 07:23] VITALS: BP 113/77; PULSE 71; RESP 16; TEMP 97.9; O2SAT 97
[2024-06-05] MEDS ORDERED: TRAMADOL HCL 50 MG TAB PO PRN (07:30)
[2024-06-05] MEDS: INSULIN REGULAR, HUMAN 100 UNIT/1 ML SQ SCH (07:30)
[2024-06-05] MEDS ORDERED: DEXTROSE 50% SYRINGE 50 ML IV PRN (07:30)
[2024-06-05 07:35] LABS: ANION GAP 15.2 mmol/L (8-16); CALCIUM 9.6 mg/dL (8.4-10.2); CREATININE, SERUM 1.27 mg/dL (0.57-1.11); POTASSIUM 4.2 mmol/L (3.5-5.1)
[2024-06-05 07:52] VITALS: PULSE 84; RESP 18; O2SAT 96
[2024-06-05] MEDS ORDERED: FUROSEMIDE 20 MG TAB PO PRN (09:00)
[2024-06-05] MEDS: GLIMEPIRIDE 2 MG TAB PO SCH (09:33)
[2024-06-05] MEDS: HYDRALAZINE HCL 25 MG TAB PO SCH (09:33)
[2024-06-05] MEDS: CITALOPRAM HYDROBROMIDE 20 MG TAB PO SCH (09:34)
[2024-06-05] MEDS: LEVOTHYROXINE SODIUM 50 MCG TAB PO SCH (09:34)
[2024-06-05] MEDS: METOPROLOL TARTRATE 50 MG TAB PO SCH (09:34)
[2024-06-05] MEDS: APIXABAN 5 MG TABLET PO SCH (09:34)
[2024-06-05 11:05] VITALS: BP 136/68; PULSE 77; RESP 17; TEMP 98.2; O2SAT 98
[2024-06-05 15:26] VITALS: BP 143/60; PULSE 70; RESP 16; TEMP 97.7; O2SAT 100
[2024-06-05] MEDS ORDERED: FUROSEMIDE20 MG PO (19:17)
[2024-06-05 19:31] VITALS: BP 139/66; PULSE 74; RESP 18; TEMP 99; O2SAT 98
[2024-06-05] MEDS ORDERED: GABAPENTIN 100 MG CAP PO SCH (21:00)
[2024-06-05] MEDS ORDERED: ATORVASTATIN 40 MG TAB PO SCH (21:00)
[2024-06-05] MEDS ORDERED: AMIODARONE HCL 200 MG TAB PO SCH (21:00)
== END 2024-06-05 20:20 | disposition home or self-care (01) | DRG 641 ==
LOC: ER 13:14 → ERHOLD 15:07 → MED/SURG 19:45
PROVIDERS: ADMIT Internal Medicine; ATTEND Internal Medicine
DX: E87.5 Hyperkalemia (principal); I13.0 Hypertensive heart and chronic kidney disease with heart failure and stage 1 through stage 4 chronic kidney disease, or unspecified chronic kidney disease; I48.20 Chronic atrial fibrillation, unspecified; E87.20 Acidosis, unspecified; E87.1 Hypo-osmolality and hyponatremia; E11.22 Type 2 diabetes mellitus with diabetic chronic kidney disease; N18.32 Chronic kidney disease, stage 3b; D63.1 Anemia in chronic kidney disease; E03.9 Hypothyroidism, unspecified; E78.5 Hyperlipidemia, unspecified; F41.9 Anxiety disorder, unspecified; F32.A Depression, unspecified; M54.9 Dorsalgia, unspecified; T50.0X5A Adverse effect of mineralocorticoids and their antagonists, initial encounter; T46.5X5A Adverse effect of other antihypertensive drugs, initial encounter; Z79.01 Long term (current) use of anticoagulants; Z79.84 Long term (current) use of oral hypoglycemic drugs; Z79.85 Long-term (current) use of injectable non-insulin antidiabetic drugs; Z79.890 Hormone replacement therapy; Z95.810 Presence of automatic (implantable) cardiac defibrillator; Z88.8 Allergy status to other drugs, medicaments and biological substances; Z82.49 Family history of ischemic heart disease and other diseases of the circulatory system
CPT/HCPCS: 36415; 80048; 80053; 81001; 82570; 82948; 84156; 85025; 93005; 94799; 99284; J7799